=== PATIENT | female | born 1980 | race Caucasian/White ===

== ENCOUNTER 2016-10-20 15:38 | Emergency (ER) | payer SELFPAY ==
[2016-10-20 16:57] VITALS: BP 90/67
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
== END 2016-10-20 17:04 | disposition home or self-care (01) ==
LOC: UCCORT 15:38
DX: G89.29 Other chronic pain (principal); M54.9 Dorsalgia, unspecified; Z87.828 Personal history of other (healed) physical injury and trauma
CPT/HCPCS: 99212; G0463

== ENCOUNTER 2016-10-24 12:06 | Emergency (ER) | payer OTHER ==
[2016-10-24 14:22] VITALS: BP 113/78
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
[2016-10-24] MEDS ORDERED: HYDROcodone/ACETAMIN 5-325 MG* 1 TAB PO ONE (14:58)
== END 2016-10-24 15:17 | disposition home or self-care (01) ==
LOC: UCCORT 12:06
DX: S39.012S Strain of muscle, fascia and tendon of lower back, sequela (principal); X58.XXXS Exposure to other specified factors, sequela
CPT/HCPCS: 99212; G0463

== ENCOUNTER 2016-10-31 15:34 | Emergency (ER) | payer OTHER ==
[2016-10-31 16:02] VITALS: BP 109/70
--- NOTE | 2016-10-31 16:24 | UC ---
Back Pain HPI - HPI Summary HPI Summary: Presents for renewal of analgesics. Has a Worker's Comp back injury, with Dr. Palmer managing her care. She has had fluctuation in care due to insurance problems. Dr. Jacobsen is her neurosurgeon, and he proposes surgery for her for discectomy, but is requiring that she lose 30 pounds before he performs her surgery. Present pain control is oxycodone 10/[address] Rosario--due to restrictions in prescribing, plan was to use higher analgesic dose to stretch further. I spoke with Stephanie Jimenez, the [facility] caseworker, who is aware of this management plan. Angela is to start PT next week. Presently off work for the next month. Reviewed [employer]ACH[employer] - History of Current Complaint Chief Complaint: UCBackPain Stated Complaint: LOWER BACK PAIN Time Seen by Provider: 10/31/16 16:06 Hx Obtained From: Patient Hx Last Menstrual Period: 10/23/16 ?: No Onset/Duration: Sudden Onset, Lasting Weeks Timing: Constant Severity Initially: Moderate Severity Currently: Moderate Back Pain: Is Discrete @ - Allergies/Home Medications Allergies/Adverse Reactions: Allergies Allergy/AdvReac Type Severity Reaction Status Date / Time environmental Allergy Sneezing Uncoded 10/31/16 16:02 PMH/Surg Hx/FS Hx/Imm Hx Endocrine History Of: Denies: Diabetes Cardiovascular History Of: Denies: Cardiac Disorders Respiratory History Of: Reports: Asthma GI/ History Of: Reports: Ulcer, Kidney Stones - Surgical History Surgical History: Yes Surgery Procedure, Year, and Place: appy, cholecystectomy, tubal lig, lithotripsy, hip surgery in February 2014(right), - Family History Known Family History: Positive: None, Hypertension - Social History Occupation: Disabled - on [facility] disability x 1 more month Lives: With Family Alcohol Use: None Substance Use Type: Prescribed Smoking Status (MU): Never Smoked Tobacco - Immunization History Most Recent Influenza Vaccination: [id number] Most Recent Tetanus Shot: unknown Review of Systems Constitutional: Negative Skin: Negative Eyes: Negative ENT: Negative Respiratory: Negative Cardiovascular: Negative Gastrointestinal: Negative Genitourinary: Negative Motor: Decreased ROM Neurovascular: Negative Musculoskeletal: Negative Neurological: Negative Psychological: Negative All Other Systems Reviewed And Are Negative: Yes Physical Exam Triage Information Reviewed: Yes Appearance: Pain Distress - uncomfortable walking, overweight, wearing a back brace. Antalgic gait Vital Signs: Initial Vital Signs Temp 98.6 F 10/31/16 15:57 Pulse 73 10/31/16 15:57 Resp 18 10/31/16 15:57 BP 109/70 10/31/16 15:57 Pulse Ox 100 10/31/16 15:57 Eye Exam: Normal ENT: Positive: Normal ENT inspection Neck: Positive: Supple Respiratory: Positive: Lungs clear, Normal breath sounds Cardiovascular: Positive: RRR, No Murmur Musculoskeletal Exam: Other - wearing back brace. Can heel and toe walk. DTR's at knees are 2+ and symmetrica. Pain with SLR greater than 80 degrees, tight hamstrings. Psychological Exam: Other - looks mildly depressed. Skin Exam: Normal Back Pain Course/Dx - Course Course Of Treatment: maintain narcotic pain medications pending comp re- evaluation. - Differential Dx/Diagnosis Provider Diagnoses: lumbar disk disesase Discharge - Discharge Plan Condition: Stable Disposition: HOME Prescriptions: oxyCODONE/Acetamin 10/325(NF) [Percocet 10/325 (NF)] 1 tab PO Q4H #18 tab MDD 6 Referrals: JUAN CARLOS Garza [Primary Care Provider] -
== END 2016-10-31 16:55 | disposition home or self-care (01) ==
LOC: UCCORT 15:34
DX: M51.9 Unspecified thoracic, thoracolumbar and lumbosacral intervertebral disc disorder (principal); Z87.442 Personal history of urinary calculi
CPT/HCPCS: 99212; G0463

== ENCOUNTER 2017-04-03 16:11 | Emergency (ER) | payer SELFPAY ==
[2017-04-03 18:28] VITALS: BP 109/71
--- NOTE | 2017-04-03 18:39 | UC ---
Dental HPI - HPI Summary HPI Summary: 36 yo female with toothache x days draining pus tooth had prior root canal face feels swollen no f/c - History of Current Complaint Chief Complaint: UCDentalProblem Stated Complaint: TOOTH ACHE Time Seen by Provider: 04/03/17 18:31 Hx Obtained From: Patient Hx Last Menstrual Period: 03/31/17 Onset/Duration: Gradual Onset, Lasting Days Severity: Severe Pain Intensity: 8 Pain Scale Used: 0-10 Numeric Aggravating: Nothing Alleviating: Nothing Related History: Previous Dental Care on Same Tooth, Discharge, Swelling - Allergies/Home Medications Allergies/Adverse Reactions: Allergies Allergy/AdvReac Type Severity Reaction Status Date / Time environmental Allergy Sneezing Uncoded 04/03/17 18:21 Home Medications: Home Medications Acetaminophen TAB* [Tylenol TAB*] 500 mg PO Q4H PRN 04/03/17 [History Confirmed 04/03/17] Gabapentin CAP(*) [Neurontin 300 CAP(*)] 600 mg PO DAILY 04/03/17 [History Confirmed 04/03/17] Gabapentin CAP(*) [Neurontin 400 mg CAP(*)] 900 mg PO BID 04/03/17 [History Confirmed 04/03/17] Ibuprofen TAB* [Motrin TAB* 800 MG] 1,000 mg PO ONCE 04/03/17 [History Confirmed 04/03/17] PMH/Surg Hx/FS Hx/Imm Hx Previously Healthy: Yes - chronic back pain - Surgical History Surgical History: Yes Surgery Procedure, Year, and Place: appy, cholecystectomy, tubal lig, lithotripsy, hip surgery in February 2014(right), - Family History Known Family History: Positive: Hypertension - Social History Alcohol Use: None Substance Use Type: Prescribed Smoking Status (MU): Never Smoked Tobacco - Immunization History Most Recent Influenza Vaccination: [id number] Most Recent Tetanus Shot: unknown Review of Systems Constitutional: Negative Skin: Negative Eyes: Negative ENT: Dental Pain Respiratory: Negative Cardiovascular: Negative Gastrointestinal: Negative Genitourinary: Negative Motor: Negative Neurovascular: Negative Musculoskeletal: Negative Neurological: Negative Psychological: Negative All Other Systems Reviewed And Are Negative: Yes Physical Exam Triage Information Reviewed: Yes Appearance: Well-Appearing, No Pain Distress, Well-Nourished Vital Signs: Initial Vital Signs Temp 99.0 F 04/03/17 18:16 Pulse 83 04/03/17 18:16 Resp 16 06/22/17 18:16 BP 109/71 04/03/17 18:16 Pulse Ox 99 04/03/17 18:16 Vital Signs Reviewed: Yes Eye Exam: Normal Eyes: Positive: Conjunctiva Clear ENT: Positive: Hearing grossly normal. Negative: Nasal congestion, Nasal drainage, Trismus, Muffled/hoarse voice Dental: Positive: Other: - abysmal dentition Neck: Positive: Nontender, No Lymphadenopathy Respiratory: Positive: Lungs clear, Normal breath sounds, No respiratory distress, No accessory muscle use Cardiovascular: Positive: RRR, No Murmur. Negative: Tachycardia, Bradycardia Musculoskeletal: Positive: ROM Intact, No Edema Neurological: Positive: Alert Psychological Exam: Normal Skin Exam: Normal Dental Complaint Course/Dx - Differential Dx/Diagnosis Provider Diagnoses: acute dentalgia. ?abscess Discharge - Discharge Plan Condition: Stable Disposition: HOME Prescriptions: HYDROcodone/ACETAMIN 5-325 MG* [[place] 5-325 TAB*] 1 tab PO Q4H PRN #12 tab MDD 5 PRN Reason: Pain - Severe Penicillin VK TAB 500 MG(NF) [Penicillin VK 500 mg Tab(NF)] 500 mg PO QID #28 tab Patient Education Materials: Toothache (ED) Referrals: JUAN CARLOS Garza [Primary Care Provider] - Additional Instructions: continue motrin to ER for worsening symptoms see your dentist first available appt Images Dental: 1 - tender tooth/capped/no obvious abscess noted, many missing teeth
[2017-04-03] MEDS ORDERED: Penicillin VK TAB* 250 MG PO ONE (18:41)
== END 2017-04-03 18:50 | disposition home or self-care (01) ==
LOC: UCCORT 16:11
DX: K08.89 Other specified disorders of teeth and supporting structures (principal); G89.29 Other chronic pain; M54.9 Dorsalgia, unspecified; Z90.49 Acquired absence of other specified parts of digestive tract
CPT/HCPCS: 99212; A9270-GY; G0463

== ENCOUNTER 2018-03-25 20:57 | Emergency (ER) | payer SELFPAY ==
[2018-03-25 21:34] VITALS: BP 112/71
--- NOTE | 2018-03-25 22:10 | UC ---
General HPI - HPI Summary HPI Summary: 37 yo female c/o worsening chronic low back pain. Hs disc injury in December 2015 at work, with pain radiating LLE> RLE. Plans to have surgery (Dr. Marroquin, Neurosurgeon), date TBD. Ms. Briones is waiting for a follow up appt, thinks it will be within the next few days. No b/b issues. She is concerned b/c she is scheduled to return to work, but needs a work note. Nature of pain (location, dysesthesia) similar, but reports that lately more intense. - History of Current Complaint Chief Complaint: UCLowerExtremity Stated Complaint: LEFT LEG PAIN - W/C Time Seen by Provider: 03/25/18 21:29 Hx Obtained From: Patient Hx Last Menstrual Period: 02/25/18 Pain Intensity: 8 - Allergy/Home Medications Allergies/Adverse Reactions: Allergies Allergy/AdvReac Type Severity Reaction Status Date / Time environmental Allergy Sneezing Uncoded 04/03/17 18:21 Home Medications: Home Medications Oxycodone IR 10 MG(NF) 10 mg PO TID 03/25/18 [History Confirmed 03/25/18] Pantoprazole Sodium 20 mg PO DAILY 03/25/18 [History Confirmed 03/25/18] Pregabalin CAP(*) [Lyrica CAP(*)] 75 mg PO TID 03/25/18 [History Confirmed 03/25] PMH/Surg Hx/FS Hx/Imm Hx Previously Healthy: No - see hpi - Surgical History Surgical History: Yes Surgery Procedure, Year, and Place: appy, cholecystectomy, tubal lig, lithotripsy, hip surgery in February 2014(right), - Family History Known Family History: Positive: None, Hypertension - Social History Alcohol Use: None Substance Use Type: None Smoking Status (MU): Never Smoked Tobacco - Immunization History Most Recent Influenza Vaccination: [id number] Most Recent Tetanus Shot: unknown Review of Systems Constitutional: Negative Skin: Negative Eyes: Negative ENT: Negative Respiratory: Negative Cardiovascular: Negative Gastrointestinal: Negative Genitourinary: Negative Motor: Other - see hpi Neurovascular: Other - see hpi Musculoskeletal: Other: - see hpi Neurological: Other - see hpi Psychological: Negative Is Patient Immunocompromised?: No All Other Systems Reviewed And Are Negative: Yes Physical Exam Triage Information Reviewed: Yes Appearance: Well-Nourished - sitting up in chair, able to stand up and ambulate slowly. Vital Signs: Initial Vital Signs Temp 99.2 F 03/25/18 21:20 Pulse 96 03/25/18 21:20 Resp 17 03/25/18 21:20 BP 112/71 03/25/18 21:20 Pulse Ox 98 03/25/18 21:20 Vital Signs Reviewed: Yes Eye Exam: Normal - grossly normal ENT Exam: Normal - grossly normal Neck exam: Normal - no problems reported Respiratory Exam: Normal Respiratory: Positive: Chest non-tender, Lungs clear, Normal breath sounds, No respiratory distress, No accessory muscle use Cardiovascular Exam: Normal Cardiovascular: Positive: RRR, No Murmur, Pulses Normal, Brisk Capillary Refill Abdominal Exam: Normal Abdomen Description: Positive: Nontender Musculoskeletal Exam: Other - Tender mid-low back, + spasm. Point bony tenderness not appreciated. Tenderness subj radiates down both buttock ( sciatic region). Distal (foot / toes) sens LT present, subj dysesthetic L toes > R toes. DP /PT palbable bilat. CR <2 sec bilat feet. Neurological Exam: Other - see above Psychological Exam: Normal - conversing easily and appropriately Skin Exam: Normal - no visible or reported rash Course/Dx - Course Course Of Treatment: Ms. Briones reports that she plans to f/u pcp, and NS. Awaiting appts. As such, work note written for 2 weeks, with the understanding that she will need to see her pcp and / or NS prior to then. She thinks in the next few days. Questions as posed answered to the best of my ability. - Differential Dx - Multi-Symptom Provider Diagnoses: Acute exacerbation chronic back pain Discharge - Sign-Out/Discharge Documenting (check all that apply): Discharge/Admit/Transfer - Discharge Plan Condition: Stable Disposition: HOME Patient Education Materials: Lumbar Radiculopathy (ED), Chronic Back Pain (ED) Forms: *Work Release Referrals: Nisreen Martinez PA [Primary Care Provider] - Additional Instructions: Please follow up with your Neurosurgeon as planned. Seek medical attention for worse or new problems. Movement / excercise per discretion of your neurosurgeon. Follow up with your primary care physician, per routine. - Billing Disposition and Condition Condition: STABLE Disposition: Home
== END 2018-03-25 22:03 | disposition home or self-care (01) ==
LOC: UCCORT 20:57
DX: M54.5 Low back pain (principal); G89.29 Other chronic pain; M79.605 Pain in left leg; M79.604 Pain in right leg; Z91.09 Other allergy status, other than to drugs and biological substances
CPT/HCPCS: 99212; G0463

== ENCOUNTER 2018-12-17 12:18 | Emergency (ER) | payer SELFPAY ==
[2018-12-17 13:45] VITALS: BP 115/70
--- NOTE | 2018-12-17 14:02 | UC ---
Dizzy HPI HPI Summary: 38 yo female with left hemicranial OSBORNE and dizziness x 4 weeks seen at ER 2 weeks ago told her potassum level was low since then she had fallen a few times due to dizziness SOB x 2 days Feels near syncopal at time told by family members that she is pale hx anemia hx migraines some flashes left eye has vomited rarely during the past month - History Of Current Complaint Chief Complaint: UCDizziness Stated Complaint: HEADACHE,LEFT EAR PAIN Time Seen by Provider: 12/17/18 13:26 Hx Obtained From: Patient Hx Last Menstrual Period: 11/30/18 Onset/Duration: Gradual Onset Timing: Constant Severity Initially: Severe Severity Currently: Severe Pain Intensity: 8 Pain Scale Used: 0-10 Numeric Character: Lightheaded, Weak, Dizzy Aggravating Factor(s): Headache, Position Change Alleviating Factor(s): Lying Down Associated Signs And Symptoms: Positive: Nausea, Vomiting - rarely, SOB - x 2 days, Unsteady Gait, Visual Changes, Decreased Oral Intake. Negative: Diaphoresis, Tinnitus, Chest Pain, Palpitations, Change In Medication, Change In Diet, OTC Medications - Allergies/Home Medications Allergies/Adverse Reactions: Allergies Allergy/AdvReac Type Severity Reaction Status Date / Time environmental Allergy Sneezing Uncoded 12/17/18 13:46 PMH/Surg Hx/FS Hx/Imm Hx Previously Healthy: Yes GI/ History: Ulcer, Kidney Stones Neurological History: Migraine - Surgical History Surgical History: Yes Surgery Procedure, Year, and Place: appy, cholecystectomy, tubal lig, lithotripsy, hip surgery in February 2014 (right), - Family History Known Family History: Positive: Hypertension - Social History Alcohol Use: None Substance Use Type: None Smoking Status (MU): Never Smoked Tobacco - Immunization History Most Recent Influenza Vaccination: [id number] Most Recent Tetanus Shot: unknown Review of Systems All Other Systems Reviewed And Are Negative: Yes Constitutional: Positive: Fatigue Skin: Positive: Negative Eyes: Positive: Other - left eye flashes ENT: Negative: Epistaxis, Dental Pain, Sore Throat, Ear Ache, Nasal Discharge, Sinus Congestion, Sinus Pain/Tenderness Respiratory: Positive: Shortness Of Breath Cardiovascular: Positive: Negative Gastrointestinal: Positive: Vomiting - rare, Nausea Neurovascular: Positive: Negative Musculoskeletal: Positive: Negative Neurological: Positive: Headache, Weakness Psychological: Positive: Negative Physical Exam Triage Information Reviewed: Yes Appearance: Other: - PALE Vital Signs: Initial Vital Signs Temp 98 F 12/17/18 13:22 Pulse 93 12/17/18 13:22 Resp 22 12/17/18 13:22 BP 115/70 12/17/18 13:22 Pulse Ox 100 12/17/18 13:22 Vital Signs Reviewed: Yes Eyes: Positive: Conjunctiva Clear, Other: - EOMI/PERRL ENT: Positive: Hearing grossly normal, TMs normal. Negative: Nasal congestion, Nasal drainage, Tonsillar swelling, Tonsillar exudate, Muffled voice, Hoarse voice Neck: Positive: Supple, Nontender, No Lymphadenopathy Respiratory: Positive: Lungs clear, Normal breath sounds, No respiratory distress, No accessory muscle use Cardiovascular: Positive: RRR, No Murmur Abdomen Description: Positive: Nontender, No Organomegaly Neurological: Positive: Alert Psychological Exam: Normal Skin Exam: Other - pallor Diagnostics - EKG Cardiac Rate: NL Cardiac Rhythm: Sinus: Normal Ectopy: None ST Segment: Normal Dizzy Course/Dx - Course Course Of Treatment: D/W Dr. Garvey. To [facility] via POV (her mother is driving) - Differential Dx/Diagnosis Provider Diagnosis: Headache, Dizziness, Pallor, Dyspnea Discharge - Sign-Out/Discharge Documenting (check all that apply): Patient Departure All imaging exams completed and their final reports reviewed: No Studies - Discharge Plan Condition: Stable Disposition: TRANS HIGHER LVL OF CARE FAC Referrals: No Primary Care Phys,NOPCP [Primary Care Provider] - Additional Instructions: please go directly to the [facility] for evaluation of your symptoms they are expecting you - Billing Disposition and Condition Condition: STABLE Disposition: Trans Higher Lvl of Care Fac
== END 2018-12-17 14:03 | disposition short-term general hospital (02) ==
LOC: UCCORT 12:18
DX: R51 Headache (principal); R42 Dizziness and giddiness; R23.1 Pallor; R06.00 Dyspnea, unspecified; R06.02 Shortness of breath; H92.02 Otalgia, left ear; H53.149 Visual discomfort, unspecified; H57.89 Other specified disorders of eye and adnexa; Z91.09 Other allergy status, other than to drugs and biological substances
CPT/HCPCS: 93005; 99212; G0463

== ENCOUNTER 2018-12-24 09:08 | Emergency (ER) | payer SELFPAY ==
[2018-12-24 09:44] VITALS: BP 109/66
--- NOTE | 2018-12-24 10:03 | UC ---
Skin Complaint HPI - HPI Summary HPI Summary: 38 yo female with chronic hx acne presents with painful/swollen and red ear lobe states that last PM it drained a lot of pus now with sore on tip of nose that she attributes to an acne face agent - History of Current Complaint Chief Complaint: UCEar Time Seen by Provider: 12/24/18 09:51 Stated Complaint: SKIN CONCERN - RIGHT EAR Hx Obtained From: Patient Hx Last Menstrual Period: 11/29/18 Onset/Duration: Gradual Onset, Lasting Days Timing: Constant Onset Severity: Mild Current Severity: Moderate Pain Intensity: 8 Pain Scale Used: 0-10 Numeric Location: Ear (Right) Character: Pruritus, Pain, Redness, Raised, Painful Aggravating Factor(s): Touch Alleviating Factor(s): Nothing Associated Signs & Symptoms: Positive: Negative, Drainage, Tenderness - Allergy/Home Medications Allergies/Adverse Reactions: Allergies Allergy/AdvReac Type Severity Reaction Status Date / Time environmental Allergy Sneezing Uncoded 12/24/18 09:39 Home Medications: Home Medications Bupropion XL* [Wellbutrin XL *] 300 mg PO DAILY 12/24/18 [History Confirmed ] Meclizine TAB* [Antivert 12.5 TAB*] 25 mg PO TID 12/24/18 [History Confirmed ] Potassium 10 mg PO DAILY 12/24/18 [History Confirmed 12/24/18] PMH/Surg Hx/FS Hx/Imm Hx Previously Healthy: Yes - herniated discs - Surgical History Surgical History: Yes Surgery Procedure, Year, and Place: appy, cholecystectomy, tubal lig, lithotripsy, hip surgery in February 2014 (right), - Family History Known Family History: Positive: Hypertension - Social History Alcohol Use: Occasionally Substance Use Type: None Smoking Status (MU): Never Smoked Tobacco - Immunization History Most Recent Influenza Vaccination: [id number] Most Recent Tetanus Shot: unknown Review of Systems All Other Systems Reviewed And Are Negative: Yes Constitutional: Positive: Negative Skin: Positive: Rash Eyes: Positive: Negative ENT: Positive: Negative Respiratory: Positive: Negative Cardiovascular: Positive: Negative Gastrointestinal: Positive: Negative Genitourinary: Positive: Negative Motor: Positive: Negative Neurovascular: Positive: Negative Musculoskeletal: Positive: Arthralgia - back Neurological: Positive: Negative Psychological: Positive: Negative Physical Exam Triage Information Reviewed: Yes Appearance: Well-Appearing, No Pain Distress, Well-Nourished Vital Signs: Initial Vital Signs Temp 98.1 F 12/24/18 09:38 Pulse 107 12/24/18 09:38 Resp 16 12/24/18 09:38 BP 109/66 12/24/18 09:38 Pulse Ox 100 12/24/18 09:38 Vital Signs Reviewed: Yes Eyes: Positive: Conjunctiva Clear ENT: Positive: Normal ENT inspection. Negative: Nasal congestion, Nasal drainage, Trismus, Muffled voice, Hoarse voice Dental Exam: Normal Neck exam: Normal Neck: Positive: Supple, Nontender, No Lymphadenopathy Respiratory: Positive: Lungs clear, Normal breath sounds, No respiratory distress, No accessory muscle use Cardiovascular: Positive: RRR, No Murmur Musculoskeletal: Positive: ROM Intact, No Edema Neurological: Positive: Alert Psychological Exam: Normal Skin Exam: Other - papules on face, impetigenous lesion tip of nose, right ear lobe swollen and red, seal site of drainage, not flutuant Course/Dx - Diagnoses Provider Diagnosis: Cellulitis of right earlobe, Impetigo, unspecified Discharge - Sign-Out/Discharge Documenting (check all that apply): Patient Departure All imaging exams completed and their final reports reviewed: No Studies - Discharge Plan Condition: Stable Disposition: HOME Prescriptions: DOXYcycline CAP(*) [DOXYcycline 100MG CAP(*)] 100 mg PO BID #20 cap Ibuprofen TAB* [Motrin TAB*] 600 mg PO Q6H PRN #40 tab PRN Reason: Pain Mupirocin 2% OINT* [Bactroban 2 % Oint*] 1 applic TOPICAL TID #1 tube Patient Education Materials: Cellulitis (ED) Referrals: No Primary Care Phys,NOPCP [Primary Care Provider] - Additional Instructions: recheck in 48 hours if not improved recheck sooner if symptoms worsen warm soapy compresses to right ear 4x day don't squeeze if you note more pus return - Billing Disposition and Condition Condition: STABLE Disposition: Home
== END 2018-12-24 10:18 | disposition home or self-care (01) ==
LOC: UCCORT 09:08
DX: H60.11 Cellulitis of right external ear (principal); L01.00 Impetigo, unspecified; L70.8 Other acne; M54.9 Dorsalgia, unspecified; R23.8 Other skin changes; R21 Rash and other nonspecific skin eruption; Z91.09 Other allergy status, other than to drugs and biological substances
CPT/HCPCS: 87070; 87205; 99212; G0463

== ENCOUNTER 2019-02-12 20:41 | Emergency (ER) | payer SELFPAY ==
--- OUTSIDE RECORDS SUMMARY | 2019-02-12 20:52 | XMS REPORT | Continuity of Care Document ---
:1980 External Reference #:[id number] Author Name Rhoda Us PNP-BC, CLAY HOISTER, Ibclc Address [address] [place] [address] Care Team Providers Name Role Phone Rhoda Us, JIM, ERNESTINE, Ibne Care Team Information Legal Administrator Unavailable Rhoda Us PNP-BC, ERNESTINE, Ibclc Primary Care Physician Unavailable Payers Date Identification Numbers Payment Provider Subscriber Policy Number: [id number] [employer] Angela Fostervenice PayID: [id number] [address] [place] [address] Onset: 2016 Group Number: WCB # Guarantee Insurance Angela Briones [id number] Company PayID: [id number] [address] [place] [address] Advance Directives Description No Information Available Problems Active Problems Provider Date Polysubstance abuse Nisreen Martinez RPAC Onset: 09/26/2018 Alcohol abuse Nisreen Martinez RPAC Onset: 09/26/2018 Borderline personality disorder Nisreen Martinez RPAC Onset: 11/05/2018 Dysthymia Nisreen Martinez RPAC Onset: 03/31/2018 Panic disorder without agoraphobia Nisreen Martinez RPAC Onset: 03/31/2018 Kidney stone Catalino Mccormack MD Onset: 03/26/2016 Note: L lithotripsy Gastroesophageal reflux disease Catalino Mccormack MD Onset: 03/26/2016 Note: esophageal dilation 10/2017 Migraine Catalino Mccormack MD Onset: 03/26/2016 Degenerative joint disease involving Nisreen Martinez [facility] WITH [facility] Onset: 2016 multiple joints Note: lumbar, S-I joints, hips Degeneration of lumbar intervertebral disc Nisreen Martinez [facility] WITH [facility] Onset: 03/2017 Note: (B) nerve impingement CT 12/2016 Environmental allergy Nisreen Martinez [facility] WITH [facility] Onset: 06/19/2017 Note: hx of allergy immunoproprophylaxis, since childhd Constipation Nisreen Martinez [facility] WITH [facility] Onset: 11/10/2017 Malaise and fatigue Nisreen Martinez [facility] WITH [facility] Onset: 03/31/2018 Varicose veins of lower extremity Nisreen Martinez [facility] WITH [facility] Onset: 03/31/2018 Note: left Resolved Problems Bite of nonvenomous arthropod Nisreen Martinez [facility] WITH [facility] Onset: 03/31/2018 Resolved: 05/03/2018 Family History Date Family Member(s) Observation Comments Mother Asthma Mother Gastritis Mother Stroke Mother Diabetes Mother Heart Disease Mother Gastroesophageal Reflux Disease (GERD) Mother Hernia Hiatal Children 3 Asthma & allergies First Daughter Asthma Second Daughter Asthma First Brother Asthma First Brother Gastroesophageal Reflux Disease (GERD) Second Brother Gastroesophageal Reflux Disease (GERD) Onset: (age 70 Paternal Grandfather Colon Cancer Years) Social History Type Date Description Comments Sex Unknown Lives With Children Home Environment Lives With Kids x3 Diet Patient follows no dietary restrictions 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 Work Status Currently Working Tobacco Use Start: Unknown Never Smoked Cigarettes ETOH Use Currently consumes alcohol socially Tobacco Use Start: Unknown Patient denies history of smoking Recreational Drug Use Current Drug User polysubstance abuse Smoking Status Reviewed: 01/25/19 Patient denies history of smoking Allergies, Adverse Reactions, Alerts Description No Known Drug Allergies Medications Active Medications SIG Qnty Indications Ordering Date Provider Gabapentin 1 by mouth two 60caps G89.4 Rhoda Us, 01/25/2019 300mg times a day PNP-BC, CLAY HOISTER, Capsules Ibclc Tramadol HCL 1 tab by mouth q6 60tabs G89.4 Rhoda Us, 01/25/2019 50mg hours as needed PNP-BC, CLAY HOISTER, Tablets reference #: Ibclc [id number] Duloxetine HCL 1 by mouth every 60caps F34.1 Rhoda Us, 01/25/2019 30mg day for 1 week PNP-BC, CLAY HOISTER, Caps DR Rose then 2 once a Ibclc day. Polyethylene Glycol mix 1 tablespoon 1054units Rhoda Us, 11/11/2018 3350 with large glass BABS-BC, CLAY HOISTER, 3350NF Powder of water and Ibclc drink every day Thiamine HCL 1 by mouth every 90tabs Rhoda Us, 09/17/2018 100mg day PNP-MARCEL, CLAY HOISTER, Tablets Ibclc Multivitamin Adult 1 by mouth every 90tabs Shelton Bullard, 09/17/2018 day M.D. Tablets Pantoprazole Sodium take 1 tablet by 30tabs R13.10 Rhoda Us, 2016 mouth every day BABS-MARCEL CLAY HOISTER, 20mg Tablets DR Rome Tumelidia prn Unknown 500mg Chewtabs History Medications Dok Take 1 Capsule By 60caps Leon Maynard, 11/11/2018 - 100mg Capsules Mouth And Can 01/25/2019 Take Twice Daily as Needed Mupirocin Calcium Thin layer to 1units Shelton Bullard, 11/06/2018 - Oin face wounds tid M.D. 11/06/2018 Mupirocin apply a thin 22gm Shelton Bullard, 11/06/2018 - 2% Ointment layer to face M.D. 01/25/2019 wounds 3 times a day until healed Bactroban Thin layer to 15gm Shelton Bullard, 11/05/2018 - 2% Cream face wounds tid M.D. 11/06/2018 Duloxetine HCL 1 by mouth every 30caps F34.1 Shelton Bullard, 11/05/2018 - 60mg day M.D. 01/25/[address] Rose Potassium Chloride Take 1 Tablet By 30tabs Shelton Bullard, 10/16/2018 - Jessie ER Mouth Every Day M.D. 01/25/2019 10Meq Tablets ER Pramipexole Take 1 To 2 60tabs Shelton Bullard, 10/16/2018 - Dihydrochloride Tablets By Mouth M.D. 01/25/2019 0.25mg AT Bedtime Tablets Lyrica 1 cap by mouth 20caps Shelton Bullard, 09/29/2018 - 25mg Capsules twice a day, M.D. 11/05/2018 taper as directed Doxepin HCL Take 1 Capsule By 60caps F41.9 BullardIshan lakhanishan, 09/29/2018 - 10mg Mouth Twice Daily M.D. 01/25/2019 Capsules as Needed For Anxiety Bupropion HCL ER (XL) 1 by mouth every 30tabs F34.1 Shelton Bullard, 2017 - day M.D. 01/25/2019 300mg Tablets ER 24HR Mirapex 1-2 tabs by mouth 60tabs Shelton Bullard, 09/21/2018 - 0.25mg Tablets at bedtime M.D. 10/16/2018 Klor-Con M10 1 by mouth every 30tabs Shelton Bullard, 09/17/2018 - 10Meq day M.D. 10/16/2018 Tablets ER Oxycodone HCL 1 tablet by mouth Aaron Mckeon MD 08/31/2018 - 10mg every 4 hrs ::: 09/28/2018 Lyrica one cap by mouth Aaron Mckeon MD 08/31/2018 - 50mg Capsules three times a day 09/28/2018 Bupropion HCL ER (SR) 1 By Mouth Every 30tabs F34.1 Shelton Bullard, 2017 - Am M.D. 09/21/2018 150mg Tablets ER 12HR Vitamin B12 1 cc im every Shelton Bullard, 03/31/2018 - Suspension month M.D. 05/01/2018 Hydrocortisone thin layer to 28gm W57.xx Shelton Bullard, 03/31/2018 - 1% Cream face wound three xA M.D. 11/05/2018 times a day Duloxetine HCL 1 By Mouth Every 30caps F34.1 Shelton Bullard, 03/31/2018 - 30mg Day M.D. 11/05/[address] Rose Dulcolax 4 Tablets Taken A 4tabs Leon Maynard, 03/23/2018 - 5mg Tablets DR 8PM The Day 03/31/2018 Before The Procedure Dulcolax 4 tablets taken a 4tabs K92.2 Leon Maynard, 10/21/2017 - 5mg Tablets DR 8pm the day 11/10/2017 before the procedure Citroma drink 1 bottle at 296ml K92.2 Leon Maynard, 10/21/2017 - 1.745GM/30ML 12pm (noon)the 11/10/2017 Solution day before the procedure Golytely drink half the 4000ml K92.2 Leon Maynard, 10/21/2017 - 236gm Solution evening before 11/10/2017 Rec and half the morning of the procedure (1 cup every 10') Colace 1 by mouth daily 60caps K59.09 Leon Maynard, 10/21/2017 - 100mg Capsules and can take 01/25/2019 twice a day as needed Lactulose 15 milliliters by 900ml K59Leon Partida, 10/21/2017 - 20GM/30ML mouth twice a day 09/29/2018 Solution as needed Topiramate 1 po bid [facility] 07/20/2017 - [facility] 03/31/2018 Tablets Gabapentin per [facility] and 60tabs [facility] 07/20/2017 - 600mg [facility] 07/28/2017 Tablets Baclofen 1 tab by mouth [facility] 06/25/2017 - 10mg Tablets three times a day [facility] 03/31/2018 spasm Vitamin D 1 tab by mouth 90tabs Shelton Bullard, 06/24/2017 - 2000Unit every day M.D. 03/31/2018 Tablets TENS Unit uses tid Shelton Bullard, 06/19/2017 - M.D. 03/31/2018 Miralax 1 tablespoon with 1020units K59.09 Leon Maynard, 06/10/2017 - 3350NF Powder large glass of 11/05/2018 water every day Cyclobenzaprine HCL 1 by mouth three SpencerGary 04/12/2017 - times daily M.D. Unknown 10mg Tablets Pantoprazole Sodium 1 By Mouth Every 30tabs R10.13 Leon Maynard, 2015 - Day MD Rao 40mg Tablets DR Bedoya 1 by mouth every 60caps K59.09 Leon Maynard, 09/19/2016 - 50mg Capsules day MD Rao T.E.D. Anti-Embolism wear , bilateral 2Pairs 454.8 Ramon Reece MD 2012 - Stockings Thigh High [facility]18[facility]2017 [facility] Anti-Embolism right and left OnePair 454.8 Ramon Reece MD 2011 - Stockings Thigh High 06/23/2013 Medium/Regular 30-40MMHG Misc Melatonin 1 by mouth every Unknown - 5mg Capsules at bedtime as 11/05/2018 needed Lyrica 1 cap po tid Aaron Mckeon MD - 75mg Capsules 09/18/2018 Trazodone HCL take one tablets Gary Palmer - 100mg by mouth every M.D. 03/31/2018 Tablets night Gabapentin 1 by mouth bid [place] - 300mg along with the Orthopedic Unknown Capsules 600mg dose Special[facility] Gabapentin 1 by mouth three [place] - 600mg times a day Orthopedic Unknown Tablets Specialists Tums chew and swallow Unknown - 500mg Chewtabs 1 tablet by mouth 06/19/2017 3 times per day prn Acid Hand Marker 2 twice a day Unknown - 150mg 06/19/2017 Tablets Ventolin HFA 1-2 puffs every Unknown - 4-6 hours as 06/19/2017 108(90Base) mcg/Act needed Aerosol Oxycodone HCL 1-2 every 4-6 Unknown - 5mg hour as needed 06/18/2017 Tablets pain tid Trazodone HCL 1 by mouth at Unknown - 100mg bedtime 06/19/2017 Tablets Limbrel 1 by mouth twice Unknown - 500mg Capsules a day Unknown Vitamin D 1 po qd Unknown - Capsules Unknown Ibuprofen Unknown - 800mg Tablets Unknown Tizanidine HCL Unknown - 4mg Unknown Capsules Vitamin D High Unknown - Potency 06/23/2013 1000Unit Capsules Tramadol HCL 1 po tid 20tabs Unknown - 50mg Unknown Tablets Vicodin 1-2 po hs 40tabs Unknown - 5-500mg Tablets Unknown Cyclobenzaprine HCL 1 po tid Unknown - 5mg 06/23/2013 Tablets Medications Administered in Office Medication SIG Qnty Indications Ordering Provider Date Injection [facility]ac [facility] Tromethamine 30 MG/mL (Toradol) Injection Immunizations Description No Information Available Vital Signs Date Vital Result Comment 01/25/2019 4:00pm BP Systolic 100 mmHg BP Diastolic 60 mmHg Body Temperature 96.9 F Heart Rate 79 /min Respiratory Rate 18 /min Height 63 inches 5'3" Weight 160.00 lb BMI (Body Mass Index) 28.3 kg/m2 BSA (Body Surface Area) 1.76 m2 [place] body weight in kilograms 52 kg O2 % BldC Oximetry 98 % 11/05/2018 1:48pm BP Systolic Sitting Right Arm 110 mmHg BP Diastolic Sitting Right Arm 80 mmHg Body Temperature 98.3 F Heart Rate 86 /min reg Respiratory Rate 18 /min Height 63 inches 5'3" Weight 150.00 lb BMI (Body Mass Index) 26.6 kg/m2 BSA (Body Surface Area) 1.71 m2 [place] body weight in kilograms 52 kg O2 % BldC Oximetry 98 % ra 09/29/2018 1:03pm BP Systolic Sitting Right Arm 120 mmHg BP Diastolic Sitting Right Arm 74 mmHg Body Temperature 99.0 F Heart Rate 95 /min reg Respiratory Rate 30 /min Height 63 inches 5'3" Weight 155.00 lb BMI (Body Mass Index) 27.5 kg/m2 BSA (Body Surface Area) 1.74 m2 [place] body weight in kilograms 52 kg O2 % BldC Oximetry 98 % ra 05/01/2018 1:03pm BP Systolic 116 mmHg BP Diastolic 71 mmHg Body Temperature 98.6 F Heart Rate 86 /min Respiratory Rate 18 /min Height 63 inches 5'3" Weight 150.00 lb BMI (Body Mass Index) 26.6 kg/m2 BSA (Body Surface Area) 1.71 m2 [place] body weight in kilograms 52 kg O2 % BldC Oximetry 97 % 03/31/2018 11:18am BP Systolic Sitting Left Arm 110 mmHg BP Diastolic Sitting Left Arm 68 mmHg Body Temperature 98.4 F Heart Rate 82 /min Respiratory Rate 16 /min Height 63 inches 5'3" Weight 154.00 lb BMI (Body Mass Index) 27.3 kg/m2 BSA (Body Surface Area) 1.73 m2 [place] body weight in kilograms 52 kg O2 % BldC Oximetry 97 % Ra 11/11/2017 4:03pm BP Systolic Sitting Left Arm 124 mmHg BP Diastolic Sitting Left Arm 80 mmHg Heart Rate 76 /min Respiratory Rate 16 /min Height 63 inches 5'3" Weight 156.00 lb BMI (Body Mass Index) 27.6 kg/m2 BSA (Body Surface Area) 1.74 m2 [place] body weight in kilograms 52 kg 10/21/2017 1:27pm BP Systolic Sitting Left Arm 118 mmHg BP Diastolic Sitting Left Arm 76 mmHg Heart Rate 73 /min Respiratory Rate 16 /min Height 63 inches 5'3" Weight 153.00 lb BMI (Body Mass Index) 27.1 kg/m2 BSA (Body Surface Area) 1.73 m2 [place] body weight in kilograms 52 kg 10/16/2017 2:35pm BP Systolic Sitting Left Arm 122 mmHg BP Diastolic Sitting Left Arm 70 mmHg Heart Rate 67 /min Respiratory Rate 16 /min Height 63 inches 5'3" Weight 156.00 lb BMI (Body Mass Index) 27.6 kg/m2 BSA (Body Surface Area) 1.74 m2 [place] body weight in kilograms 52 kg 07/28/2017 1:12pm BP Systolic Sitting Left Arm 104 mmHg BP Diastolic Sitting Left Arm 72 mmHg Heart Rate 70 /min Respiratory Rate 18 /min Height 63 inches 5'3" Weight 158.00 lb BMI (Body Mass Index) 28.0 kg/m2 BSA (Body Surface Area) 1.75 m2 [place] body weight in kilograms 52 kg O2 % BldC Oximetry 98 % 06/19/2017 10:53am BP Systolic Sitting Left Arm 108 mmHg BP Diastolic Sitting Left Arm 72 mmHg Heart Rate 84 /min Respiratory Rate 18 /min Height 63 inches 5'3" Weight 160.00 lb BMI (Body Mass Index) 28.3 kg/m2 BSA (Body Surface Area) 1.76 m2 [place] body weight in kilograms 52 kg O2 % BldC Oximetry 98 % 06/10/2017 11:36am BP Systolic Sitting Left Arm 110 mmHg BP Diastolic Sitting Left Arm 76 mmHg Heart Rate 72 /min Respiratory Rate 16 /min Height 64.75 inches 5'4.75" Weight 164.00 lb BMI (Body Mass Index) 27.5 kg/m2 BSA (Body Surface Area) 1.81 m2 [place] body weight in kilograms 56 kg 09/19/2016 9:29am BP Systolic Sitting Left Arm 104 mmHg BP Diastolic Sitting Left Arm 76 mmHg Heart Rate 78 /min Respiratory Rate 16 /min Height 64.75 inches 5'4.75" Weight 178.00 lb BMI (Body Mass Index) 29.8 kg/m2 BSA (Body Surface Area) 1.88 m2 09/13/2013 1:14pm BP Systolic Sitting Left Arm 111 mmHg BP Diastolic Sitting Left Arm 71 mmHg Heart Rate 83 /min Height 64.75 inches 5'4.75" Weight 171.00 lb BMI (Body Mass Index) 28.7 kg/m2 BSA (Body Surface Area) 1.85 m2 06/23/2013 10:15am BP Systolic Sitting Left Arm 104 mmHg BP Diastolic Sitting Left Arm 68 mmHg Height 64.75 inches 5'4.75" Weight 175.00 lb BMI (Body Mass Index) 29.3 kg/m2 BSA (Body Surface Area) 1.86 m2 11/25/2011 1:33pm BP Systolic Sitting Right Arm 91 mmHg BP Diastolic Sitting Right Arm 52 mmHg Heart Rate 78 /min Respiratory Rate 16 /min Height 63 inches 5'3" Weight 170.00 lb BMI (Body Mass Index) 30.1 kg/m2 Results Test Date Facility Test Result H/L Range Note Laboratory test finding 11/15/2018 [facility] Lipase 73 U/L N 56-289 1 [address] [place] [address] [phone] HCG,Serum (Qualitative) NEGATIVE (Negative) 2 CBC W/Automated Diff 11/15/2018 [facility] White Blood 6.7 K/uL N 3.1-10.[address] [place] [address] [phone] Red Blood Count 4.53 M/uL N 3.90-5.40 Hemoglobin 13.0 gm/dL N 11.6-15.8 Hematocrit 38.8 % N 36.0-46.1 Mean Cell Volume 85.7 fl N 80.9-99.0 Mean Corpuscular HGB 28.7 pg N 25.9-32.7 Mean Corpuscular HGB Conc 33.5 g/dL N 30.8-34.3 Platelet Count 286 K/uL N 155-360 Red Cell Distri Width SD 42.8 fl N 36-47 Red Cell Distri Width %CV 14.1 % N 11.7-14.4 Mean Platelet Volume 11.1 fL N 8.9-12.4 Neut% 61.9 % N 40.4-72.8 Lymph % 26.3 % N 20.0-42.0 Stephens % 8.9 % N 4.3-13.2 Eo% 2.6 % N 0.0-6.6 Bas% 0.3 % N 0.0-1.1 Neut# 4.13 K/uL N 1.8-7.0 Lymph # 1.75 K/uL N 1.0-4.0 Stephens # 0.59 K/uL N 0.3-0.9 Eos # 0.17 K/uL N 0.0-0.5 Baso # 0.02 K/uL N 0.0-0.1 Comprehensive Metabolic 11/15/2018 [facility] Glucose 94 mg/dL N 74-106 Panel [address] [place] [address] [phone] BUN 8 mg/dL N 7-18 Creatinine 0.7 mg/dL 0.6-1.3 Glom Filtration Rate, Estimate >60 mL/min >60 If >60 mL/min >60 3 BUN/Creat 11.4 ratio Sodium 139 mmol/L N 136-145 Potassium 3.1 mmol/L Low 3.5-5.1 Chloride 102 mmol/L N 98-107 Carbon Dioxide 30 mmol/L N 21-32 Anion Gap 7 mEq/L Low 8-16 Calcium 9.8 mg/dL N 8.5-10.1 Total Protein 8.0 g/dL N 6.4-8.2 Albumin 3.8 g/dL N 3.4-5.0 Globulin 4.2 g/dL N 1.9-4.3 Alb/Glob 0.9 ratio Bilirubin,Total 0.5 mg/dL N 0.2-1.0 Sgot/Ast 18 U/L N 15-37 SGPT/Alt 23 U/L N 12-78 Alkaline Phosphatase 116 U/L N 45-117 Lactic Acid 11/15/2018 [facility] Lactic Acid 0.8 mmol/L N 0.4-1.9 [address] [place] [address] [phone] Lab Reflex >2.0 for Sepsis? Y Urine Dipstick 11/05/2018 [facility] Ua Color yellow Yellow Ua Clarity clear Clear Ua Leuko negative Negative Ua Nitrite negative Negative Ua Urobilinogen trace Low 0.2 - 1.0 E.U./dL Ua Protein trace Negative Ua PH 8.0 High 6.5-7.5 Ua Blood negative Negative Ua Specific [place] 1.015 1.010-1.030 Ua Ketones negative Negative Ua Bilirubin negative Negative Ua Glucose negative Negative Blood Culture 09/16/2018 [facility] Blood Culture NO GROWTH: FINAL 4, [address] Aerobic <SEE NOTE> [place] [address] [phone] Blood Culture Anaerobic NO GROWTH: FINAL <SEE NOTE> 6 CBC W/Automated Diff 09/16/2018 [facility] White Blood 7.7 K/uL N 3.1-10.[address] Count [place] [address] [phone] Red Blood Count 4.70 M/uL N 3.90-5.40 Hemoglobin 13.6 gm/dL N 11.6-15.8 Hematocrit 39.8 % N 36.0-46.1 Mean Cell Volume 84.7 fl N 80.9-99.0 Mean Corpuscular HGB 28.9 pg N 25.9-32.7 Mean Corpuscular HGB Conc 34.2 g/dL N 30.8-34.3 Platelet Count 250 K/uL N 155-360 Red Cell Distri Width SD 39.6 fl N 3-47 Red Cell Distri Width %CV 13.1 % N 11.7-14.4 Mean Platelet Volume 12.2 fL N 8.9-12.4 Neut% 49.9 % N 40.4-72.8 Lymph % 37.8 % N 20.0-42.0 Stephens % 11.1 % N 4.3-13.2 Eo% 0.9 % N 0.0-6.6 Bas% 0.3 % N 0.0-1.1 Neut# 3.84 K/uL N 1.8-7.0 Lymph # 2.91 K/uL N 1.0-4.0 Stephens # 0.85 K/uL N 0.3-0.9 Eos # 0.07 K/uL N 0.0-0.5 Baso # 0.02 K/uL N 0.0-0.1 Laboratory test 09/16/2018 [facility] Salicylate < 1.7 mg/dL Low 2.8-20.0 7 finding [address] [place] [address] [phone] Lactic Acid 09/16/2018 [facility] Lactic Acid 1.5 mmol/L N 0.4-1.9 [address] [place] [address] [phone] Lab Reflex >2.0 for Sepsis? Y Comprehensive Metabolic 09/16/2018 [facility] Glucose 85 mg/dL N 74-106 Panel [address] [place] [address] [phone] BUN 10 mg/dL N 7-18 Creatinine 1.0 mg/dL N 0.6-1.3 Glom Filtration Rate, Estimate >60 mL/min >60 If >60 mL/min >60 8 BUN/Creat 10.0 ratio Sodium 138 mmol/L N 136-145 Potassium 3.1 mmol/L Low 3.5-5.1 Chloride 103 mmol/L N 98-107 Carbon Dioxide 24 mmol/L N 21-32 Anion Gap 11 mEq/L N 8-16 Calcium 8.6 mg/dL N 8.5-10.1 Total Protein 8.0 g/dL N 6.4-8.2 Albumin 3.8 g/dL N 3.4-5.0 Globulin 4.2 g/dL N 1.9-4.3 Alb/Glob 0.9 ratio Bilirubin,Total 0.7 mg/dL N 0.2-1.0 Sgot/Ast 12 U/L Low 15-37 9 SGPT/Alt 18 U/L N 12-78 Alkaline Phosphatase 108 U/L N 45-117 Laboratory test finding 09/16/2018 [facility] Magnesium 2.2 mg/dL N 1.8-2.4 [address] [place] [address] [phone] CK 84 U/L N 26-192 HCG,Serum (Qualitative) NEGATIVE (Negative) 10 Acetaminophen < 2.0 ug/mL Low 10.0-30.0 11 Ethyl Alcohol < 3.0 mg/dL Blood Culture 09/16/2018 [facility] Blood Culture NO GROWTH: FINAL [address] Aerobic <SEE NOTE> [place] [address] [phone] Blood Culture Anaerobic NO GROWTH: FINAL <SEE NOTE> 13 Laboratory test 05/01/2018 [facility] C-Reactive < 2.9 mg/L <3.0 [address] Protein,[place] [address] [phone] Uric Acid 3.2 mg/dL N 2.6-6.0 Calcium 8.7 mg/dL N 8.5-10.1 Total Protein 7.3 g/dL N 6.4-8.2 Albumin 3.7 g/dL N 3.4-5.0 Alb/Glob 1.0 ratio Alkaline Phosphatase 97 U/L N 45-117 Rheumatoid Factor Screen < 10.0 IU/mL N 0.0-15.0 Globulin 3.6 g/dL N 1.9-4.3 Sedimentation Rate 13 mm/hr N 0-20 15 Antinuclear Antibodies, Ifa Negative . 16 Laboratory test 03/31/2018 [facility] Thyroid Stim 1.53 N 0.30-4.[address] Hormone uIU/mL [place], [place] [id number] [phone] Glycohemoglobin 03/31/2018 [facility] Glycohemoglobin 5.7 % N 4.2-6.[address] (A1c) [place] [address] [phone] eAG 117 mg/dL Comprehensive Metabolic 03/31/2018 [facility] Glucose 82 mg/dL N 74-[address] [place] [address] [phone] BUN 8 mg/dL N 7-18 Creatinine 0.6 mg/dL N 0.6-1.3 Glom Filtration Rate, Estimate >60 mL/min >60 If >60 mL/min >60 18 BUN/Creat 13.3 ratio Sodium 141 mmol/L N 136-145 Potassium 4.1 mmol/L N 3.5-5.1 Chloride 105 mmol/L N 98-107 Carbon Dioxide 29 mmol/L N 21-32 Anion Gap 7 mEq/L Low 8-16 Calcium 8.5 mg/dL N 8.5-10.1 Total Protein 7.2 g/dL N 6.4-8.2 Albumin 3.6 g/dL N 3.4-5.0 Globulin 3.6 g/dL N 1.9-4.3 Alb/Glob 1.0 ratio Bilirubin,Total 0.5 mg/dL N 0.2-1.0 Sgot/Ast 13 U/L Low 15-37 19 SGPT/Alt 16 U/L N 12-78 Alkaline Phosphatase 99 U/L N 45-117 CBS W/Automated Diff 03/31/2018 [facility] White Blood 5.2 K/uL N 3.1-10.[address] Count [place], [place] [id number] [phone] Red Blood Count 4.32 M/uL N 3.90-5.40 Hemoglobin 12.5 gm/dL N 11.6-15.8 Hematocrit 38.3 % N 36.0-46.1 Mean Cell Volume 88.7 fl N 80.9-99.0 Mean Corpuscular HGB 28.9 pg N 25.9-32.7 Mean Corpuscular HGB Conc 32.6 g/dL N 30.8-34.3 Platelet Count 206 K/uL N 155-360 Red Cell Distri Width SD 41.0 fl N 3-47 Red Cell Distri Width %CV 13.1 % N 11.7-14.4 Mean Platelet Volume 12.9 fL High 8.9-12.4 Neut% 44.6 % N 40.4-72.8 Lymph % 36.2 % N 20.0-42.0 Stephens % 9.9 % N 4.3-13.2 Eo% 8.9 % High 0.0-6.6 Bas% 0.4 % N 0.0-1.1 Neut# 2.30 K/uL N 1.8-7.0 Lymph # 1.87 K/uL N 1.0-4.0 Stephens # 0.51 K/uL N 0.3-0.9 Eos # 0.46 K/uL N 0.0-0.5 Baso # 0.02 K/uL N 0.0-0.1 Urine Dipstick 03/31/2018 [facility] Ua Color dark yellow Yellow Ua Clarity clear Clear Ua Leuko negative Negative Ua Nitrite negative Negative Ua Urobilinogen 0.2 0.2 - 1.0 E.U./dL Ua Protein negative Negative Ua PH 5.0 Low 6.5-7.5 Ua Blood 3+ High Negative Ua Specific [place] 1.020 1.010-1.030 Ua Ketones negative Negative Ua Bilirubin negative Negative Ua Glucose negative Negative Laboratory 11/05/2017 [facility] Urine HCG NEGATIVE Negative 20, 21 test finding [address] (Qualitative) [place], [place] [id number] [phone] Iron-Tibc-%Sat 06/19/2017 [facility] Serum Iron 68 g/dL N 50-[address] [place], [place] [id number] [phone] Total Iron Binding Capacity 388 g/dL N 250-450 Transferrin %Saturation 18 % N 12-57 Reflex add FT3? N Reflex add FT4? Y CBS W/Automated Diff 06/19/2017 [facility] White Blood 5.0 K/uL N 3.1-10.[address] Count [place], [place] [id number] [phone] Red Blood Count 4.43 M/uL N 3.90-5.40 Hemoglobin 13.4 gm/dL N 11.6-15.8 Hematocrit 39.6 % N 36.0-46.1 Mean Cell Volume 89.4 fl N 80.9-99.0 Mean Corpuscular HGB 30.2 pg N 25.9-32.7 Mean Corpuscular HGB Conc 33.8 g/dL N 30.8-34.3 Platelet Count 203 K/uL N 150-400 Red Cell Distri Width SD 40.4 fl N 3-47 Red Cell Distri Width %CV 12.6 % N 11.7-14.4 Mean Platelet Volume 12.8 fL High 8.9-12.4 Neut% 62.0 % N 40.4-72.8 Lymph % 27.4 % N 20.0-42.0 Stephens % 5.4 % N 4.3-13.2 Eo% 4.8 % N 0.0-6.6 Bas% 0.4 % N 0.0-1.1 Neut# 3.08 K/uL N 1.8-7.0 Lymph # 1.36 K/uL N 1.0-4.0 Stephens # 0.27 K/uL Low 0.3-0.9 Eos # 0.24 K/uL N 0.0-0.5 Baso # 0.02 K/uL N 0.0-0.1 TSH Reflex FT4 06/19/2017 [facility] Thyroid Stim 0.67 uIU/mL N 0.30-4.20 And/Or FT3 [address] Hormone [place], [place] [id number] [phone] Reflex add FT3? N Reflex add FT4? Y Laboratory test 06/19/2017 [facility] Vitamin 24.6 Low 30.0-100.0 [address] D,25-Hydroxy ng/mL [place], [place] [id number] [phone] Comprehensive 06/19/2017 [facility] Glucose 86 mg/dL N 74-106 Metabolic Panel [address] [place] [address] [phone] BUN 13 mg/dL N 7-18 Creatinine 0.6 mg/dL N 0.6-1.3 Glom Filtration Rate, Estimate >60 mL/min >60 If >60 mL/min >60 24 BUN/Creat 21.6 ratio Sodium 142 mmol/L N 136-145 Potassium 4.2 mmol/L N 3.5-5.1 Chloride 112 mmol/L High 98-107 Carbon Dioxide 24 mmol/L N 21-32 Anion Gap 6 mEq/L Low 8-16 Calcium 9.1 mg/dL N 8.5-10.1 Total Protein 7.7 g/dL N 6.4-8.2 Albumin 3.7 g/dL N 3.4-5.0 Globulin 4.0 g/dL N 1.9-4.3 Alb/Glob 0.9 ratio Bilirubin,Total 0.5 mg/dL N 0.2-1.0 Sgot/Ast 12 U/L Low 15-37 25 SGPT/Alt 15 U/L N 12-78 Alkaline Phosphatase 94 U/L N 45-117 Reflex add FT3? N Reflex add FT4? Y Laboratory 09/25/2016 [facility] H. Pylori Stool Negative N Negative 26, 27 test finding [address] [place] [address] [phone] Laboratory 03/27/2016 [facility] [place], Biopsy See Note 28 test finding 134 [place] [address] [phone] Arthritis 07/14/2013 [facility] Sedimentation 12 mm/hr 0-20 Panel([place] [address] Rate ) [place] [address] [phone] Rheumatoid Factor Screen NEGATIVE Negative Uric Acid 3.7 mg/dL 2.1-7.4 Antinuclear Antibodies, Ifa Negative . 29 CBC W/Automated Diff 07/14/2013 [facility] White Blood 4.6 K/uL 3.1-10.[address] [place] [address] [phone] Red Blood Count 4.23 M/uL 3.90-5.40 Hemoglobin 12.7 gm/dL 11.6-15.8 Hematocrit 37.7 % 36.0-46.1 Mean Cell Volume 89.1 fl 80.9-99.0 Mean Corpuscular HGB 30.0 pg 25.9-32.7 Mean Corpuscular HGB Conc 33.7 g/dL 30.8-34.3 Platelet Count 173 K/uL 155-360 Red Cell Distri Width SD 42.1 fl 3-47 Red Cell Distri Width %CV 13.1 % 11.7-14.4 Mean Platelet Volume 13.2 fL High 8.9-12.4 Neut% 49.9 % 40.4-72.8 Lymph % 35.6 % 17.0-46.1 Stephens % 9.3 % 4.3-13.2 Eo% 4.8 % 0.0-6.6 Bas% 0.4 % 0.0-1.1 Neut# 2.30 K/uL 1.0-7.0 Lymph # 1.64 K/uL 0.8-3.4 Stephens # 0.43 K/uL 0.3-0.9 Eos # 0.22 K/uL 0.0-0.5 Baso # 0.02 K/uL 0.0-0.1 CBC 06/13/2013 [facility] White Blood Count 5.8 K/uL 3.1-10.[address] [place] [address] [phone] Red Blood Count 3.75 M/uL Low 3.90-5.40 Hemoglobin 10.9 gm/dL Low 11.6-15.8 Hematocrit 34.7 % Low 36.0-46.1 Mean Cell Volume 92.5 fl 80.9-99.0 Mean Corpuscular HGB 29.1 pg 25.9-32.7 Mean Corpuscular HGB Conc 31.4 g/dL 30.8-34.3 Platelet Count 162 K/uL 155-360 Red Cell Distri Width %CV 13.7 % 11.7-14.4 Mean Platelet Volume 12.7 fL High 8.9-12.4 CBC 06/12/2013 [facility] White Blood Count 5.7 K/uL 3.1-10.7 [address] [place] [address] [phone] Red Blood Count 3.77 M/uL Low 3.90-5.40 Hemoglobin 11.2 gm/dL Low 11.6-15.8 Hematocrit 33.9 % Low 36.0-46.1 Mean Cell Volume 89.9 fl 80.9-99.0 Mean Corpuscular HGB 29.7 pg 25.9-32.7 Mean Corpuscular HGB Conc 33.0 g/dL 30.8-34.3 Platelet Count 172 K/uL 155-360 Red Cell Distri Width %CV 13.4 % 11.7-14.4 Mean Platelet Volume 11.4 fL 8.9-12.4 Hemoglobin/Hematocrit 06/12/2013 [facility] Hemoglobin 11.0 Low 11.6-15.[address] gm/[place] [address] [phone] Hematocrit 34.3 % Low 36.0-46.1 Urine Screen 06/11/2013 [facility] Urine Color YELLOW Yellow [address] [place] [address] [phone] Urine Clarity CLEAR Clear Urine Glucose - Dipstick NEGATIVE mg/dL Negative Urine Bilirubin - Dipstick NEGATIVE Negative Urine Ketone NEGATIVE mg/dL Negative Urine Specific [place] <=1.005 Low 1.010-1.030 Urine Blood NEGATIVE Negative Urine PH 7.0 6.5-7.5 Urine Protein - Dipstick NEGATIVE mg/dL Negative Urine Urobilinogen - Dipstick 0.2 E.U./dL 0.2-1.0 Urine Nitrite - Dipstick NEGATIVE Negative Urine Leuk Esterase NEGATIVE Negative 1 N/V, PAIN ABDOM 2 Method: Quidel QuickVue One-Step Immunoassay 3 Note: Persistent reduction for 3 months or more in an eGFR <60 mL/min/1.73 m2 defines CKD. Patients with eGFR values >/=60 mL/min/1.73 m2 may also have CKD if evidence of persistent proteinuria is present. The original MDRD equation for estimated GFR is not valid for patients less than 18 years of age. Additional information may be found at www.kdoqi.org. 4 OVERDOSE ON UNKNOWN SUBSTANCE? 5 NO GROWTH: FINAL REPORT 6 NO GROWTH: FINAL REPORT 7 THERAPEUTIC RANGE: 15-30 mg/dL POTENTIAL TOXICITY VARIES WITH TIME FROM INGESTION. PLEASE CONSULT APPROPRIATE NOMOGRAM. 8 Note: Persistent reduction for 3 months or more in an eGFR <60 mL/min/1.73 m2 defines CKD. Patients with eGFR values >/=60 mL/min/1.73 m2 may also have CKD if evidence of persistent proteinuria is present. The original MDRD equation for estimated GFR is not valid for patients less than 18 years of age. Additional information may be found at www.kdoqi.org. 9 Values below the stated reference ranges of AST and ALT can be seen in normal populations. Clinical correlation is suggested. 10 Method: Quidel QuickVue One-Step Immunoassay 11 Acetaminophen concentration >150 ug/mL at four hours after ingestion and 50.0 ug/mL at twelve hours after ingestion are often associated with toxic reactions. 12 NO GROWTH: FINAL REPORT 13 NO GROWTH: FINAL REPORT 14 R53.83 15 Method: Sediplast Modified Westergren 16 Negative <1:80 Borderline 1:80 Positive >1:80 Performed at: RN - [facility] [address] [id number] Bean Snipper: Jenn Horowitz MD, Phone: [phone] 17 Elevated levels of HbA1c suggest the need for more aggressive treatment of glycemia. The [place] Diabetes Association recommends that a primary goal of therapy should be a HbA1c of <7% and that physicians should re-evaluate the treatment regimen in patients with HbA1c values consistently >8%. 18 Note: Persistent reduction for 3 months or more in an eGFR <60 mL/min/1.73 m2 defines CKD. Patients with eGFR values >/=60 mL/min/1.73 m2 may also have CKD if evidence of persistent proteinuria is present. The original MDRD equation for estimated GFR is not valid for patients less than 18 years of age. Additional information may be found at www.kdoqi.org. 19 Values below the stated reference ranges of AST and ALT can be seen in normal populations. Clinical correlation is suggested. 20 COLONSCOPY,GASTROSCOPY RESCHEDULED 21 FIRST MORNING SPECIMENS GENERALLY CONTAIN THE HIGHEST CONCENTRATION OF HCG AND ARE RECOMMENDED FOR EARLY DETECTION OF . Method: Quidel QuickVue One-Step Immunoassay 22 N92.0 R53.83 23 Vitamin D deficiency has been defined by the [place] of [employer] and an Endocrine Society practice guideline as a level of serum 25-OH vitamin D less than 20 ng/mL (1,2). The Endocrine Society went on to further define vitamin D insufficiency as a level between 21 and 29 ng/mL (2). 1. IOM ([place] of [employer]). 2010. Dietary reference intakes for calcium and D. [place]: The National Academies Press. 2. Neris MF, Zhen NC, Golden OSBORNE, et al. Evaluation, treatment, and prevention of vitamin D deficiency: an Endocrine Society clinical practice guideline. JCEM. 2010; 96(7):1911-30. Performed at: RN - [facility] [address] [id number] Bean Snipper: Jenn Horowitz MD, Phone: [phone] 24 Note: Persistent reduction for 3 months or more in an eGFR <60 mL/min/1.73 m2 defines CKD. Patients with eGFR values >/=60 mL/min/1.73 m2 may also have CKD if evidence of persistent proteinuria is present. The original MDRD equation for estimated GFR is not valid for patients less than 18 years of age. Additional information may be found at www.kdoqi.org. 25 Values below the stated reference ranges of AST and ALT can be seen in normal populations. Clinical correlation is suggested. 26 R10.13 27 Performed at: RN - [facility] [address] [id number] Bean Snipper: Jenn Horowitz MD, Phone: [phone] 28 OPERATION/PROCEDURE Colonoscopy, gastroscopy DIAGNOSIS: PART 1: "COLON, RANDOM, BIOPSY": - BENIGN COLONIC MUCOSA WITH NO SIGNIFICANT PATHOLOGIC ABNORMALITIES. - NO EVIDENCE OF MICROSCOPIC COLITIS. PART 2: "DUODENUM, BIOPSY": - BENIGN SMALL INTESTINAL MUCOSA WITH NO SIGNIFICANT PATHOLOGIC ABNORMALITIES. - NO EVIDENCE OF VILLOUS BLUNTING OR INCREASED INTRAEPITHELIAL LYMPHOCYTES. EP/clf 1018 GROSS Received in formalin in two properly labeled containers with the patient's name and accession number. Part one is designated, "RANDOM COLON BIOPSIES". The specimen consists of multiple pieces of russell, soft rubbery tissue measuring 0.5 x 0.4 x 0.2 cm. in aggregate. Submitted entirely, one cassette. Part two is designated, "DUODENAL BIOPSIES". The specimen consists of multiple pieces of russell, soft, rubbery tissue measuring 0.6 x 0.5 x 0.3 cm. in aggregate. Submitted entirely, one cassette. CC/clf PRE OPERATIVE DIAGNOSIS GI bleed REVIEW CODE CODE: I Signed Electronically signed Kizzy ESPARZA MD [id number] Negative <1:80 Borderline 1:80 Positive >1:80 Performed at: RN - [facility] [address] [id number] Bean Snipper: Jenn Horowitz MD, Phone: [phone] Procedures Date Code Description Status 01/25/2019 04044 Brief Emotional/Behav Assessment W/ Scoring Doc Per Completed Standard Inst 12/18/2018 74761 Echocardiogram Complete Completed 11/05/2018 07437 Brief Emotional/Behav Assessment W/ Scoring Doc Per Completed Standard Inst 11/05/2017 92949 Colonoscopy Completed 11/05/2017 99869 EGD W/Guide Wire & Dilation Completed 11/05/2017 69480 EGD With Biopsy Completed 11/05/2017 [id number] Colonoscopy Completed 06/19/2017 04119 Theraputic Or Diagnostic Injection Completed 03/27/2016 16217 Colonoscopy With Biopsy Completed 03/27/2016 [id number] Colonoscopy Completed 03/13/2016 [id number] Colonoscopy Completed 01/07/2014 25 Disability Form Completed 08/16/2013 29109 Radiology, Knee 3 Views Completed 07/16/2013 45284 Radiology, L-S Spine Complete Completed Encounters Type Date Location Provider Dx Diagnosis Office Visit 01/25/2019 Family Medicine Rhoda Us, F33.9 Major depressive 3:[address]p [address] PNP-BC, CLAY HOISTER, disorder, Ibclc recurrent, unspecified G89.4 Chronic pain syndrome F41.0 Panic disorder [episodic paroxysmal anxiety] K21.0 Gastro-esophageal reflux disease with esophagitis G43.009 Migraine w/o aura, not intractable, w/o status migrainosus Office Visit 11/05/2018 1:30p Primary Care Juan, F33.9 Major depressive Office [place] RPAC disorder, recurrent, unspecified F41.9 Anxiety disorder, unspecified F13.10 Sedative, hypnotic or anxiolytic abuse, uncomplicated G89.4 Chronic pain syndrome Office Visit 09/29/2018 1:00p Primary Care Juan, F33.9 Major depressive Office Nisreen, RPAC disorder, recurrent, unspecified F41.9 Anxiety disorder, unspecified Office Visit 05/01/2018 1:00p Primary Care Juan, F34.1 Dysthymic Office [place], RPAC disorder R53.83 Other fatigue G89.4 Chronic pain syndrome Office Visit 03/31/2018 10:45a Primary Care Juan, I83.812 Varicose veins Office Nisreen, RPAC of left lower extremity with pain F34.1 Dysthymic disorder F41.0 Panic disorder [episodic paroxysmal anxiety] R53.83 Other fatigue W57.xxxA Bit/stung by nonvenom insect & oth nonvenom arthropods, init Office Visit 11/11/2017 4:00p Leon Sood MD R13.13 Dysphagia, pharyngeal phase K59.09 Other constipation Office Visit 10/21/2017 1:15p Leon Sood MD R10.9 Unspecified abdominal pain K59.09 Other constipation K92.2 Gastrointestinal hemorrhage, unspecified R13.10 Dysphagia, unspecified Office Visit 07/28/2017 1:30p Primary Care Wisner, G89.4 Chronic pain Office [facility] syndrome Office Visit 06/19/2017 10:30a Primary Care Wisner, R51 Headache Office [facility] G89.4 Chronic pain syndrome N92.0 Excessive and frequent menstruation with regular cycle R53.83 Other fatigue Z80.3 Family history of malignant neoplasm of breast Office Visit 06/10/2017 11:30a Leon Sood MD K59.09 Other constipation R13.10 Dysphagia, unspecified Office Visit 09/19/2016 9:00a Leon Sood MD R10.13 Epigastric pain K59.09 Other constipation Office Visit 03/26/2016 2:57p Catalino Mcmillan MD R10.9 Unspecified abdominal pain R10.9 Unspecified abdominal pain Office Visit 12/02/2013 2:39p All Vang 099.56 Chlamydia [facility] J., DO [facility] Infection Peritoneum 599.70 Hematuria, Unspecified Office Visit 11/30/2013 5:03p [place] Xavier Platt, 599.70 Hematuria, Regional M.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 724.3 Sciatica 724.4 Neuritis Or Radiculitis Thoracic Or Lumbosacral Unspec Office Visit 09/13/2013 1:00p Surgical Office Ramon Reece, 454.8 Varicose Veins Of The Lower Extremities, W/Other Complicatn 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 Office Visit 08/16/2013 Orthopaedic Karlos Zamora 717.7 Chondromalacia Of 8:30a Office MD Mya, FACS [place] 719.46 Pain Joint Lower Leg Office Visit 08/02/2013 Orthopaedic Karlos Zamora 715.15 Osteoarthrosis 10:15a Office MD Mya, FACS Localized Prim Pelvic & Thigh 719.45 Pain Joint Pelvic Region & Thigh Office Visit 07/21/2013 9:00a Orthopaedic Office Karlos Zamora, 724.2 Venessa MCDONALD, FACS 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 724.3 Sciatica Office Visit 07/16/2013 10:00a Orthopaedic Office Karlos Zamora, 724.2 Venessa MCDONALD, FACS 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 724.3 Sciatica Office Visit 07/14/2013 Orthopaedic Karlos Zamora 719.45 Pain Joint Pelvic 8:15a Office MD Mya, FACS Region & Thigh Office Visit 06/23/2013 Karlos [place] 722.10 Intervertebral Disc 9:30a Office MD Mya, FACS Displacement Lumbar W/O Myelopathy 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 724.3 Sciatica 724.3 Sciatica 724.4 Neuritis Or Radiculitis Thoracic Or Lumbosacral Unspec 724.4 Neuritis Or Radiculitis Thoracic Or Lumbosacral Unspec 719.45 Pain Joint Pelvic Region & Thigh 719.45 Pain Joint Pelvic Region & Thigh Office Visit 06/11/2013 2:59p Surgical Office Deepak Campa, 789.03 Pain Abdominal Right Lower Quadrant E888.9 Unspecified Fall Office Visit 11/25/2011 1:20p Surgical Office Ramon Reece, 454.8 Varicose Veins Of The Lower Extremities, W/Other Complicatn Plan of Treatment Future Appointment(s):02/08/2019 3:30 pm - Rhoda Us, PNP-BC, CLAY HOISTER, Ibclc at [facility]
[2019-02-12 20:55] VITALS: BP 110/71
--- NOTE | 2019-02-12 21:04 | UC ---
UC General HPI - HPI Summary HPI Summary: DAY 2 OF FREQUENT-BURNING URINATION. NO FEVER, FLANK PAIN OR ABDOMINAL PAIN. HX UTI'S AND THIS FEELS THE SAME. - History of Current Complaint Chief Complaint: UCGU Stated Complaint: PAIN UPON URINATION Time Seen by Provider: 02/12/19 20:57 Hx Obtained From: Patient Jhony Last Menstrual Period: [id number] Onset/Duration: Gradual Onset Pain Intensity: 9 Associated Signs & Symptoms: Negative: Abdominal Pain - Allergy/Home Medications Allergies/Adverse Reactions: Allergies Allergy/AdvReac Type Severity Reaction Status Date / Time environmental Allergy Sneezing Uncoded 02/12/19 20:55 Home Medications: Home Medications Gabapentin CAP(*) [Neurontin 300 CAP(*)] 300 mg PO BID 02/12/19 [History Confirmed 02/12/19] PMH/Surg Hx/FS Hx/Imm Hx - Additional Past Medical History Additional PMH: BACK PAIN, VARICOSE VEINS, UTI'S GI/ History: Gastroesophageal Reflux - Surgical History Surgical History: Yes Surgery Procedure, Year, and Place: appy, cholecystectomy, tubal lig, lithotripsy, hip surgery in February 2014 (right), - Family History Known Family History: Positive: None, Hypertension - Social History Alcohol Use: Rare Substance Use Type: None Smoking Status (MU): Never Smoked Tobacco - Immunization History Most Recent Influenza Vaccination: 3302-1669 Most Recent Tetanus Shot: unknown Review of Systems All Other Systems Reviewed And Are Negative: Yes Constitutional: Negative: Fever Gastrointestinal: Negative: Abdominal Pain, Vomiting, Nausea Genitourinary: Positive: Dysuria, Frequency, Urgency. Negative: Hematuria, Vaginal/Penile Discharge Musculoskeletal: Positive: Other: - CHRONIC BACK PAIN Physical Exam Triage Information Reviewed: Yes Appearance: Well-Appearing Vital Signs: Initial Vital Signs Temp 98.7 F 02/12/19 20:51 Pulse 89 02/12/19 20:51 Resp 18 02/12/19 20:51 BP 110/71 02/12/19 20:51 Pulse Ox 100 02/12/19 20:51 Vital Signs Reviewed: Yes Eyes: Positive: Conjunctiva Clear Respiratory: Positive: Lungs clear Cardiovascular: Positive: RRR, No Murmur Abdomen Description: Positive: Nontender, No Organomegaly, Soft. Negative: CVA Tenderness (R), CVA Tenderness (L) Bowel Sounds: Positive: Present Neurological: Positive: Alert Psychological: Positive: Age Appropriate Behavior Skin Exam: Normal Diagnostics - Laboratory Lab Results: U/A= 1+ BLOOD, PROTEIN(TRACE), 1+ LEUKOCYTES. CULTURE IS PENDING. Course/Dx - Differential Dx - Multi-Symptom Differential Diagnoses: Other - NON TOXIC. NO CONCERN FOR PYELONEPHRITIS. WILL TX PRESUMPTIVELY FOR A UTI. - Diagnoses Provider Diagnosis: Dysuria Discharge - Sign-Out/Discharge Documenting (check all that apply): Patient Departure All imaging exams completed and their final reports reviewed: No Studies - Discharge Plan Condition: Stable Disposition: HOME Prescriptions: Nitrofurantoin Monohyd/M-Cryst [Macrobid 100 mg Capsule] 100 mg PO BID 5 Days # 10 cap Patient Education Materials: Dysuria (ED) Additional Instructions: FOLLOW UP WITH YOUR PCP AT [facility] IN 5-7 DAYS - Billing Disposition and Condition Condition: STABLE Disposition: Home
[2019-02-12] MEDS ORDERED: Nitrofurantoin Macrocrystals* 50 MG CAP PO ONE (21:08)
--- NOTE | 2019-02-16 07:11 | UC ---
- Progress Note Progress Note: +BV will call in Flagyl 500 mg bid x 7 days may cont. Macrobid Course/Dx - Diagnoses Provider Diagnoses: Dysuria Discharge - Sign-Out/Discharge Documenting (check all that apply): Patient Departure All imaging exams completed and their final reports reviewed: No Studies - Discharge Plan Condition: Stable Disposition: HOME Prescriptions: Nitrofurantoin Monohyd/M-Cryst [Macrobid 100 mg Capsule] 100 mg PO BID 5 Days # 10 cap Patient Education Materials: Dysuria (ED) Referrals: No Primary Care Phys,NOPCP [Primary Care Provider] - Additional Instructions: FOLLOW UP WITH YOUR PCP AT [facility] IN 5-7 DAYS - Billing Disposition and Condition Condition: STABLE Disposition: Home
== END 2019-02-12 21:28 | disposition home or self-care (01) ==
LOC: UCCORT 20:41
DX: R30.0 Dysuria (principal); J30.89 Other allergic rhinitis; K21.9 Gastro-esophageal reflux disease without esophagitis; M54.5 Low back pain; G89.29 Other chronic pain
CPT/HCPCS: 81003; 87077; 87086; 99212; A9270-GY; G0463

== ENCOUNTER 2020-01-29 17:57 | Emergency (ER) | payer OTHER ==
--- NOTE | 2020-01-29 18:30 | UC ---
Ear Complaint HPI - HPI Summary HPI Summary: 39yo female presenting with b/l ear pain x4-5 months. Patient states pain has been intermittent but has worsened in the last week. Notes some decreased hearing. Also notes OSBORNE x6 days and "very painful bump behind the right ear." States right ear hurts worse than left. States 2 weeks ago she noticed blood on the q tip from her left ear and from her right ear yesterday. Denies purulent drainage from ears. Denies tinnitus and vertigo. Denies fever and chills. Denies UTI symptoms. Notes she does have seasonal allergies. Taking tylenol with minimal pain relief. - History of Current Complaint Stated Complaint: EAR COMPLAINT Hx Obtained From: Patient Hx Last Menstrual Period: - Allergies/Home Medications Allergies/Adverse Reactions: Allergies Allergy/AdvReac Type Severity Reaction Status Date / Time environmental Allergy Sneezing Uncoded 01/29/20 18:36 Home Medications: Home Medications Albuterol HFA INHALER* [Ventolin HFA Inhaler*] 2 puff INH Q4H PRN #1 mdi [Rx Confirmed 01/29/20] Acetaminophen TAB* [Tylenol TAB*] 1,000 mg PO TID PRN 04/03/17 [History Confirmed 01/29/20] Pantoprazole Sodium 20 mg PO DAILY 03/25/18 [History Confirmed 01/29/20] Meclizine TAB* [Antivert 12.5 TAB*] 25 mg PO TID PRN 12/24/18 [History Confirmed 01/29/20] Gabapentin CAP(*) [Neurontin 300 CAP(*)] 400 mg PO BID 02/12/19 [History Confirmed 02/12/19] Amoxicillin/Clavulanate TAB* [Augmentin TAB 875*] 875 mg PO BID #14 tab [Rx] DULoxetine DR CAP* [Cymbalta CAP*] 30 mg PO DAILY 01/29/20 [History Confirmed ] Ferrous Sulfate TAB* 325 mg PO DAILY 01/29/20 [History Confirmed 01/29/20] Loratadine [Allergy Relief] 10 mg PO BEDTIME 01/29/20 [History Confirmed ] hydrOXYzine HCL TAB* [Atarax 10 MG TAB*] 10 mg PO TID PRN 01/29/20 [History Confirmed 01/29/20] PMH/Surg Hx/FS Hx/Imm Hx GI/ History: Gastroesophageal Reflux Psychological History: Anxiety - Surgical History Surgical History: Yes Surgery Procedure, Year, and Place: appy, cholecystectomy, tubal lig, lithotripsy, hip surgery in February 2014 (right), - Family History Known Family History: Positive: None, Hypertension - Social History Alcohol Use: Rare Substance Use Type: None Smoking Status (MU): Never Smoked Tobacco - Immunization History Most Recent Influenza Vaccination: 9903-3304 Most Recent Tetanus Shot: unknown Review of Systems All Other Systems Reviewed And Are Negative: Yes Constitutional: Positive: Negative. Negative: Fever, Chills ENT: Positive: Ear Ache - b/l worse on right Respiratory: Positive: Negative Cardiovascular: Positive: Negative Gastrointestinal: Positive: Negative Musculoskeletal: Positive: Negative Neurological/Mental Status: Positive: Headache Psychological: Positive: Anxious Physical Exam - Summary Physical Exam Summary: Vital Signs Reviewed: Yes A+Ox3, no distress, well-appearing Eyes: Conjunctiva Clear ENT: Hearing grossly normal, left TM clear, right TM mild bulging and whitish discoloration, no blood noted in EAC. uvula midline, moist, no exudate, no erythema Neck: Positive: Supple, R post auricular adenopathy and tenderness Respiratory: Positive: No respiratory distress, No accessory muscle use + CTA throughout no w/r Cardiovascular: RRR nl s1, s2 no m/r CBT <2 sec Musculoskeletal Exam: ORDOÑEZ x 4 without difficulty Neurological: Positive: Alert Psychological: Positive: age appropriate behavior Skin: Positive: no rash, no ecchymosis Vital Signs: Vital Signs (72 hours) 01/29/20 18:53 Temperature 98.6 F Pulse Rate 86 Respiratory 16 Rate Blood Pressure 117/73 (mmHg) O2 Sat by Pulse 99 Oximetry Ear Complaint Course/Dx - Course Course Of Treatment: I discussed otitis media with patient and treated with augmentin. Informed the patient that she should not place any objects in the ears including q tips. Instructed to continue with symptomatic treatment and to follow up with pcp or ENT referral if symptoms persist or worsen. Patient voiced understanding and agreed with treatment plan. - Differential Dx/Diagnosis Provider Diagnosis: Otitis media of right ear Discharge ED - Sign-Out/Discharge Documenting (check all that apply): Patient Departure All imaging exams completed and their final reports reviewed: No Studies - Discharge Plan Condition: Stable Disposition: HOME Prescriptions: Amoxicillin/Clavulanate TAB* [Augmentin TAB 875*] 875 mg PO BID #14 tab Patient Education Materials: Ear Infection (ED) Referrals: Rob Faria PA [Primary Care Provider] - Ned Barksdale MD [Medical Doctor] - If Needed Additional Instructions: Take Augmentin as prescribed. Continue with tylenol and/or ibuprofen as directed for pain relief. Do not place anything in the ears, including Q tips. You may place a warm compress over the swollen lymph node a few times daily to help alleviate pain and swelling. Follow up with your primary care provider or the ENT referral listed below if your symptoms worsen or do not improve with treatment. - Billing Disposition and Condition Condition: STABLE Disposition: Home
--- OUTSIDE RECORDS SUMMARY | 2020-01-29 18:34 | XMS REPORT | Continuity of Care Document ---
:1980 Author Organization [facility] Address [address] [place] [address] Phone Care Team Providers Name Role Phone BLANCA NEVES MD Unavailable Unavailable Allergies, Adverse Reactions, Alerts Substance Reaction Status Substance Type Unknown Medications Medication Instructions Dosage Effective Dates Status Comments (start - stop) Colace 100 mg take 1 capsule by 100 MG - Active Workers capsule oral route every compensation day at bedtime as needed gabapentin 400 mg take 1 capsule by 400 MG - Active capsule oral route 3 times every day iron 325 mg (65 mg take 1 tablet by 325 MG - Active iron) tablet oral route every day duloxetine 60 mg take 1 capsule by 60 MG - Active capsule,delayed oral route 2 times release every day doxepin 10 mg take 1 capsule by 10 MG - Active capsule oral route 2 times every day Vitamin B-1 100 mg - Active tablet pramipexole 0.25 mg take 1 tablet by 0.25 MG - Active tablet oral route 3 times every day ibuprofen 400 mg take 1 tablet by - Active tablet oral route every 4 - 6 hours as needed pantoprazole 20 mg take 2 tablet by 40 MG - Active tablet,delayed oral route every release day Vitamin D3 2,000 - Active unit capsule ProAir RespiClick inhale 2 puff by 180 MCG - Active 90 mcg/actuation inhalation route breath activated every 4 - 6 hours as needed Problems Condition Effective Dates (start - stop) Clinical Status Low back pain Pain in unspecified lower leg Paresthesias/numbness Pain in right leg - Other specified postprocedural states - Arthrodesis status - Low back pain Other intervertebral disc degeneration, lumbar region Low back pain Low back pain Encounter for other specified surgical - aftercare Low back pain Encounter for other specified surgical aftercare Thrush, oral Low back pain Encounter for other specified surgical aftercare Pain in left leg Acute cystitis with hematuria Low back pain 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, lumbar region Osteophyte, vertebrae - Spinal stenosis, lumbar region without - neurogenic lars Oth specific arthropathies, NEC, oth - site Low back pain Other intervertebral disc - degeneration, lumbar region Other cord compression - Low back pain Other intervertebral disc - degeneration, lumbar region Low back pain Pain in unspecified lower leg 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, lumbar region Arthrodesis status - Low back pain 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, lumbar region Fall Risk Assessment - Low back pain Other intervertebral disc - degeneration, lumbar region Low back pain Pain in leg, unspecified Pain in right leg - Pain in left leg - Other injury of unspecified body - region, subs Unspecified fall, subsequent encounter - Spondylosis w/o myelopathy or Chronic radiculopathy, lumbar region Procedures Procedure Date Procedure Unknown Results Test Name Date and Time Measure Units Reference Range Abnormal Flag Status Comments Unknown Encounters Encounter Practice Location Reason(s) Diagnoses Date Provider Providers Description For Visit Copied on Encounter 2019 - [facility], Neurosurgery KHALID. 46 33-57 0 [facility], [place], [place], [place], [address]. [address], tel:+-468 tel:[phone] 2019 - [facility] Low back [facility], Neurosurgery painPain in MARY ANN. 46 33-[address] [facility], legParesthesias/ [facility] numbnessPain in [place], [place] [address]. [address], [place] tel:+607 tel:+ [phone] 0001 - [facility] Pain Spondylosis w/o Dec-0 [facility], Management myelopathy or 4-201 SAJID. 52 33-57 radiculopathy, [address], [place], regionOther Floor 2, [place], [place], [place], [address], [place] [address]. tel:+60 s status tel:[phone] 0001 - [facility] Low back pain Oct-2 [facility], Neurosurgery 5-201 ADESH. 46 33[address]57 [address] , [place], [place], [place], [place], [address]. [address], [place] tel:+60 tel:[phone] 0001 - [facility] Other Oct-0 [facility], Neurosurgery intervertebral 4-201 ADESH. 46 33-57 disc [address] degeneration, St, Street, lumbar region [place], [place], [address]. [address], [place] tel:+60 tel:[phone] 0001 - [facility] Low back pain Oct-0 [facility], Neurosurgery 2-201 ADESH. 46 33[address]57 [address] , [place], [place], [place], [place], [address]. [address], [place] tel:+607 tel:[phone] 0001 - [facility] Low back Sep-2 [facility], Neurosurgery painEncounter 4-201 ADESH. 46 33-57 for other [address] specified , [place], [place], [place], [place], [address]. [address], [place] tel:+607 tel:[phone] 0001 - [facility] Low back Aug-3 [facility], Neurosurgery painEncounter 0-201 MARY ANN. 46 33-57 for other [address] specified [place], [address], [facility], [place], [place], oral [address]. [address], [place] tel:+ tel: [phone] 0001 - [facility] Low back Aug-2 [facility], Neurosurgery painEncounter 3-201 MARY ANN. 46 33-57 for other [address], Street, surgical Bal Bal aftercarePain in [place], [place] legAcute [address]. [address], [place] cystitis with tel:+ tel: hematuria [phone] 0001 - [facility] Low back Latrell-1 [facility], Neurosurgery painSpondylosis 1-201 ADESH. 46 33-57 w/o myelopathy [address], Street, radiculopathy, [place] lumbar [place], regionOsteophyte [address]. [address], [place] , tel: tel: vertebraeSpinal [phone] stenosis, lumbar region without neurogenic claudOth specific arthropathies, NEC, oth site 0001 - [facility] Low back Apr-3 [facility], Neurosurgery painOther 0-201 ADE. 46 33-57 intervertebral [address], [address], degeneration, Bal Bal lumbar [place], region[place] cord [address]. [address], [place] compression tel: tel: [phone] 0001 - [facility] Low back Apr-0 [facility], Neurosurgery painOther 4-201 OFELIA. 46 33-57 intervertebral [address], Street, degeneration, [facility] lumbar region [place], [place], [address]. [address], [place] tel:+60 tel: [phone] 0001 - [facility] Low back Jarred-3 [facility], Neurosurgery painPain in 0-201 MARY ANN. 46 33-57 unspecified [address], Street, legSpondylosis Bal Bal w/o myelopathy [place] [address]. [address], [place] radiculopathy, tel:+ tel:+ lumbar [phone] regionArthrodesi s status 0001 - [facility] Low back May- [facility], Neurosurgery painSpondylosis ADESH. 46 33-57 w/o myelopathy [address] , Street, radiculopathy, Bal Bal lumbar region [place], [place], [address]. [address], [place] tel:+607 tel:[phone] 0001 - [facility] Fall Risk [facility] [employer] [facility], Neurosurgery AssessmentLow OFELIA. 46 33-57 back painOther [address], Street, disc [facility] degeneration, [place], [place] [address]. [address], [place] tel:+607 tel: [phone] 0001 - [facility] [employer] [facility], Neurosurgery OFELIA. 46 33-[address], [address], [place], [place], [place], [address]. [address], [place] tel:+607 tel:+ [phone] 0001 - [facility], Neurosurgery painPain in leg, MARY ANN. 46 33-57 unspecifiedPain [address] in right legPain [facility], in left legOther [facility] injury of [place], [place] body [address]. [address], [place] region, tel:+ tel: subsUnspecified [phone] fall, subsequent encounter Family History Family Member Diagnosis Age At Onset Mother Alive and well Father Alive and well Immunizations Vaccine Date Status Comments Immunization Unknown Payers Payer name Insurance type Covered green party ID Authorization(s) Unknown Social History Type Description Quantity Date Captured Comments Alcohol Use Details Unknown Caffeine Use Details Unknown Tobacco Use Status Unknown Smoking Status Unknown Vital Signs Date / Height Weight BMI Pulse Blood Temperature Respiratory Body Head BMI Time: Rate Pressure Rate Surface Circumference percentile Area Unknown Chief Complaint And Reason For Visit No information Reason For Referral Reason For Referral Unknown Plan Of Care Date Type Action Status Referral Ordered: ordered CLARIBEL MAGAÑA MD -Neurology (related to Paresthesias/numbness) Referral Referred To: ordered CLARIBEL MAGAÑA MD [address] [facility] [place], [address] [phone] Ordered: Referrals: Neurology. CLARIBEL MAGAÑA MD. Evaluate and treat Referral Referred To: ordered abdominal binder Ordered: Referrals: abdominal binder. Consult Referral Ordered: ordered MRI of lumbar spine W/o Contrast Then W/ Contrast Referral Ordered: ordered Pain Management (related to Low back pain) Referral Ordered: ordered Referrals: Pain Management Referral Ordered: ordered Neurology (related to Other intervertebral disc degeneration, lumbar region ) Referral Ordered: ordered Referrals: Neurology Referral Ordered: ordered Home Care (related to Low back pain) Referral Referred To: ordered HOSP BED TOTAL ELECT W/ KADIE Ordered: Referrals: HOSP BED TOTAL ELECT W/ KADIE Referral Referred To: ordered WALKER FOLDING WHEELED W/O S Ordered: Referrals: WALKER FOLDING WHEELED W/O S Referral Referred To: ordered CANE ADJUST/FIXED WITH TIP Ordered: Referrals: CANE ADJUST/FIXED WITH TIP Referral Ordered: ordered Referrals: Home Care. Evaluate and treat Referral Referred To: ordered Compression Stocking Below Knee 18-30mm Hg Each Ordered: Referrals: Compression Stocking Below Knee 18-30mm Hg Each Referral Ordered: ordered Xray Spine Lumbar, 2 or 3 views Referral Referred To: ordered compression stockings Ordered: Referrals: compression stockings Referral Ordered: ordered MRI of lumbar spine W/o Contrast Referral Ordered: ordered Physical Therapy (related to Low back pain) Referral Referred To: ordered Physical Therapy Ordered: Referrals: Physical Therapy. Consult. Diagnostic testing Referral Ordered: ordered Xray Spine Lumbar, min 4 views Appointment ELIAN GEIGER Date Type Problem Goal Intervention Status Start Date Unknown History Of Present Illness Encounter Date Complaint History Of Present Illness No information Functional Status Encounter Date Functional Assessment Cognitive Assessment Unknown Medications Administered Medication Instructions Dosage Effective Dates (start - stop) Status Comments Drug Treatment Unknown Instructions Date Instruction Additional Information Have the EMG studies done by the Related to Low back pain Neurologist and have them [facility] a [facility] spineXRay LS spineGentle home exercises and stretchesFall and lifting precautions, use the assistive device as helpfulFollow up with your family doctor for the leg painPhysical therapy referralMay transition to cane as safe for youMay transition to abdominal binder and wean from the LSO braceReferral to [facility]Please call with the name of a Pain Clinic in [place] and I will provide a referral for you Risks and benefits of new medication Related to Spondylosis w/o discussed. Comprehensive pain management myelopathy or radiculopathy, plan discussed in detail. Self symptom lumbar region management with home exercise program recommended. We don't have medical records from previous pain management physicians. I will review her previous medications records and UDS result and recommend further treatment options. Nystatin RX provided Related to Thrush, oral Risks and benefits of new medication Related to Encounter for other discussed.Follow up with your attending specified surgical aftercare physician in as scheduled with an Xray 1 hour prior to the visit at [facility] schedule physical therapy when feeling better Appropriate activities, good body mechanics, limit lifting to less than 10lb, include rest periodsWear the back brace when active and in car, may remove during quiet activitiesDaily walking, avoid activities that cause painMay shower avoid direct water hitting the incisional area, avoid bath and swimLimit driving to when not taking pain medic and you are strong and alertChange up sitting position every 30-45 minutesInclude fluids and healthy foods in diet and monitor bowel movements, prune juice or dried prunes, ghulam carter or tea as toleratedIf constipated take Colace OTC as directed, Yoon MOM if no BM as expectedPlease call the office for any questions, concerns or condition change including redness, swelling or drainage from incision, severe increase in pain, fever, bowel or bladder dysfunction, calf pain or tenderness in lower legs, severe headache. Discussed wound care Discussed post op care/precautions continue physical therapy Advance activity as tolerated Follow up with your attending physician Related to Encounter for other in 4 weeks with an Xray 1 hour prior to specified surgical aftercare the visit at [facility] schedule physical therapy when feeling better Appropriate activities, good body mechanics, limit lifting to less than 10lb, include rest periodsWear the back brace when active and in car, may remove during quiet activitiesDaily walking, avoid activities that cause painMay shower avoid direct water hitting the incisional area, avoid bath and swimLimit driving to when not taking pain medic and you are strong and alertChange up sitting position every 30-45 minutesInclude fluids and healthy foods in diet and monitor bowel movements, prune juice or dried prunes, ghulam carter or tea as toleratedIf constipated take Colace OTC as directed, Yoon MOM if no BM as expectedPlease call the office for any questions, concerns or condition change including redness, swelling or drainage from incision, severe increase in pain, fever, bowel or bladder dysfunction, calf pain or tenderness in lower legs, severe headache. Advance activity as tolerated Discussed wound care Discussed post op care/precautions schedule physical therapy Risks and benefits of new medication Related to Low back pain discussed. We will check to see if the signature can Related to Low back pain be added to the prior request. We will have the patient follow-up with Dr. Cardoza in the next few weeks for reevaluation and to try to get the surgery approved. She otherwise this has been looking for a new pain management clinic. I did tell the patient if a referral is needed she may contact our office and we will provide a referral to the pain management. On today's visit I did give her an out of work note until next visit. Physical therapy to reduce pain levels Related to Low back pain and increase functionFor out of work note requests patient needs a Functional Capacity Exam, this will be requested from Workers CompensationFollow up 3 months, sooner as needed Continue daily home exercises and stretchesMay use low heat and ice alternating 20 minutes each four times daily as needed for pain. Avoid placing the heat pad or ice directly next to the skin, use skin barrierRemain activeFall precautions discussedDiscussion of appropriate body mechanics and ergonomics Awaiting approval for XLIF L3-4 with Related to Low back pain posterior pedicle screws as requested by Dr. Marroquin. She will f/u in 6 weeks. Patient is requesting out of work Related to Low back pain noteFall precautions are discussed Continue daily home exercises and stretchesMay use low heat and ice alternating 20 minutes each four times daily as needed for pain. Avoid placing the heat pad or ice directly next to the skin, use skin barrierRemain activeFall precautions discussedDiscussion of appropriate body mechanics and ergonomics
--- OUTSIDE RECORDS SUMMARY | 2020-01-29 18:34 | XMS REPORT | Continuity of Care Document ---
:1980 Author Organization 0001 - [facility] Address [address] [place] [address] Phone Support Name Relationship Address Phone Mary Ann Singh [address] [phone] [place] [address] ARLEI HODGE Unavailable Unavailable Unavailable Allergies, Adverse Reactions, Alerts Substance [...] For Visit Copied on Encounter 2019 - [employer], [address] [place], [address], [place] tel: [phone] 0001 - [facility] Low back [facility] [employer], Neurosurgery painPain in MARY ANN. 46 33-57 unspecified 0 [facility], legParesthesias/ [facility] numbnessPain in [place], [place], [place], [place] [address]. [address], [place] tel:60 tel: [phone] 0001 - [facility] Pain Spondylosis w/o Dec-0 [facility], Management myelopathy or 4-201 SAJID. 52 33-57 radiculopathy, [address], [place], regionOther Floor 2, [place], [place], [place], [address], [place] [address]. tel:+160 s status tel:+[phone] 0001 - [facility] Low back pain Oct-2 [facility], Neurosurgery 5-201 ADESH. 46 33-57 [address] , [place], [place], [place], [place], [address]. [address], [place] tel:+1607 tel:[phone] 0001 - [facility] Other Oct-0 [facility], Neurosurgery intervertebral 4-201 ADESH. 46 33-57 disc [address] degeneration, , Street, lumbar region [place], [place], [place], [address]. [address], [place] tel:+60 tel:[phone] 0001 - [facility] Low back pain Oct-0 [facility], Neurosurgery 2-201 ADESH. 46 33-57 [address] , [place], [place], [place], [place], [address]. [address], [place] tel:+607 tel:[phone] 0001 - [facility] Low back Sep-2 [facility], Neurosurgery painEncounter 4-201 ADESH. 46 33-57 for other [address] specified , [place], [place], [place], [place], [address]. [address], [place] tel:+1607 tel:[phone] 0001 - [facility] Low back Aug-3 [facility], Neurosurgery painEncounter 0-201 MARY ANN. 46 33-57 for other [address] specified [place], [place], [facility], [place], [place], [place] [address]. [address], [place] tel:+1607 tel:[phone] 0001 - [facility] Low back Aug-2 [facility], Neurosurgery painEncounter 3-201 MARY ANN. 46 33-57 for other [address], Street, surgical [facility] aftercarePain in [place], [place], left legAcute [address]. [address], [place] cystitis with tel:+ tel:+ hematuria [phone] 0001 - [facility] Low back Latrell-1 [facility], Neurosurgery painSpondylosis 1-201 ADESH. 46 33-57 w/o myelopathy [address], Street, radiculopathy, Bal Bal lumbar [place], [place], regionOsteophyte [address]. [address], [place] , tel: tel:60 vertebraeSpinal [phone] stenosis, lumbar region without neurogenic claudOth specific arthropathies, NEC, oth site 0001 - [facility] Low back Apr-3 [facility], Neurosurgery painOther 0-201 ADE. 46 33-57 intervertebral [address], Street, degeneration, Bal Bal lumbar [place], [place], region[place] cord [address]. [address], [place] compression tel: tel: [phone] 0001 - [facility] Low back Apr-0 [facility], Neurosurgery painOther 4-201 OFELIA. 46 33-57 intervertebral [address], Street, degeneration, Bal Bal lumbar region [place], [place], [address]. [address], [place] tel: tel: [phone] 0001 - [facility] Low back Jarred-3 [facility], Neurosurgery painPain in 0-201 MARY ANN. 46 33-57 unspecified [address], Street, legSpondylosis Bal Bal w/o myelopathy [place], [place] [address]. [address], [place] radiculopathy, tel:607 tel:60 lumbar [phone] regionArthrodesi s status 0001 - [facility] Low back Aug-2 [facility], Neurosurgery painSpondylosis 8-201 ADESH. 46 33-57 w/o myelopathy [address] , Street, radiculopathy, Bal Bal lumbar region [place], [place], [place], [address]. [address], [place] tel:+607 tel:[phone] 0001 - [facility] Fall Risk [facility] [employer], Neurosurgery AssessmentLow OFELIA. 46 33-57 back painOther [address], Street, disc [facility] degeneration, [place], [place], [place] [address]. [address], [place] tel:+607 tel:[phone] 0001 - [facility], Neurosurgery OFELIA. 46 33-[address], [address], [place], [place], [place], [address]. [address], [place] tel:+607 tel:[phone] 0001 - G Low back [facility], Neurosurgery painPain in leg, MARY ANN. 46 33-57 unspecifiedPain [address] in right legPain [facility], in left legOther [facility] injury of [place], [place], [place] body [address]. [address], [place] region, tel:+607 tel:+60 subsUnspecified [phone] fall, subsequent encounter Family History Family Member Diagnosis Age At Onset Mother Alive and well Father Alive and well Immunizations Vaccine Date Status Comments Immunization Unknown Payers Payer name Insurance type Covered alliance party ID Authorization(s) Unknown Social History Type Description Quantity Date Captured Comments Unknown Vital Signs Date / Height Weight BMI Pulse Blood Temperature Respiratory Body Head BMI Time: Rate Pressure Rate Surface Circumference percentile Area Unknown Chief Complaint And Reason For Visit No information Reason For Referral Reason For Referral Unknown Plan Of Care Date Type Action Status Referral Ordered: ordered CLARIBEL MAGAÑA MD -Neurology (related to Paresthesias/numbness) Referral Ordered: ordered MRI of lumbar spine W/o Contrast Then W/ Contrast Referral Referred To: ordered CLARIBEL MAGAÑA MD 8 [facility] [place], [address] [phone] Ordered: Referrals: Neurology. CLARIBEL MAGAÑA MD. Evaluate and treat Referral Referred To: ordered abdominal binder Ordered: Referrals: abdominal binder. Consult Referral Ordered: ordered Pain Management (related to [...] Neurologist and have them send a report hereMRI LS spineXRay LS spineGentle home exercises and stretchesFall and lifting precautions, use the assistive device as helpfulFollow up with your family doctor for the leg painPhysical therapy referralMay transition to cane as safe for youMay transition to abdominal binder and wean from the LSO braceReferral to [facility]Please call with the name of a Pain Clinic in [place] and I will provide a referral for [...] 1 hour prior to the visit at [facility] schedule physical therapy when feeling better Appropriate [...] legs, severe headache. Advance activity as tolerated continue physical therapy Discussed post op care/precautions Discussed wound care Follow up with your attending physician Related to Encounter for other in 4 weeks with an Xray 1 hour prior to specified surgical aftercare the visit at [facility] schedule physical therapy when feeling better Appropriate [...] or tenderness in lower legs, severe headache. schedule physical therapy Discussed post op care/precautions Discussed wound care Advance activity as tolerated Risks and benefits of new medication Related [...]
--- OUTSIDE RECORDS SUMMARY | 2020-01-29 18:34 | XMS REPORT | Continuity of Care Document ---
:1980 Author Organization [facility] - [facility] Address [address] [place] [address] Phone Care Team Providers Name Role Phone MASOUD SIMONS MD Unavailable Unavailable Allergies, Adverse Reactions, Alerts [...] - stop) Clinical Status Low back pain Other specified postprocedural states - Low back pain Pain in unspecified lower [...] Providers Description For Visit Copied on Encounter 0001 - [facility] Low back Dec- KRISTYN [employer], Neurosurgery painOther 7 ADESH. 46 33-57 specified 0 [place] Shell postprocedural [place], [place], [place], [address]. [address], tel:+279 tel:+[phone] 0001 - [facility] JEREZ [employer], Neurosurgery 0- MARY ANN. 46 33-57 0 S[place] Shell [facility], [place], [place], [place], [address]. [address], [place] tel:+60 tel:+ [phone] 0001 - [facility] Low back Oct- [facility] [employer], Neurosurgery painPain in MARY ANN. 46 33-57 unspecified 0 [place] Shell lower [place], [place], legParesthesias/ [facility] numbnessPain in [place], [place] [address]. [address], [place] tel:+60 tel:+ [phone] 0001 - [facility] Pain Spondylosis w/o Dec- OLSEN [employer], Management myelopathy or SAJID. 52 33-57 radiculopathy, 9 [place] Shell lumbar [place], [place], regionOther Floor 2, [place], [place], [place], [address], [place] [address]. tel:+ s status tel:+ [phone] 0001 - [facility] Low back pain Oct-2 [facility] [employer], Neurosurgery 5-201 ADESH. 46 33-[address] [facility], [place], [place], [place], [address]. [address], [place] tel:+60 tel:+[phone] 0001 - [facility] Other Oct-0 [employer] [employer], Neurosurgery intervertebral 4-201 ADESH. 46 33-57 disc 9 [place] Shell [facility], , [place], lumbar region [place], [place], [place], [address]. [address], [place] tel:+60 tel:+[phone] 0001 - [facility] Low back pain Oct-0 [employer] [employer], Neurosurgery 2-201 ADESH. 46 33-57 9 S[place]manmart[place] Shell [facility], [place], [place], [place], [address]. [address], [place] tel:+60 tel:+[phone] 0001 - [facility] Low back Sep-2 [facility] [employer], Neurosurgery painEncounter 4-201 ADESH. 46 33-57 for other [address], surgical [place] aftercare [place], [place], [place], [address]. [address], [place] tel:+ tel: [phone] 0001 - [facility] Low back Aug-3 [facility] [employer], Neurosurgery painEncounter 0-201 MARY ANN. 46 33-57 for other [address], Street, surgical [place] [facility], [place], [place], [place] [address]. [address], [place] tel:+60 tel:+ [phone] 0001 - [facility] Low back Aug-2 [facility] [employer], Neurosurgery painEncounter 3-201 MARY ANN. 46 33-57 for other 9 [place] Shell specified Blayne Cisneros, surgical [place] aftercarePain in [place], left legAcute [address]. [address], [place] cystitis with tel: tel: hematuria [phone] 0001 - [facility] Low back Latrell-1 [employer] [employer], Neurosurgery painSpondylosis 1-201 ADESH. 46 33-57 w/o myelopathy [address], radiculopathy, Bal Bal lumbar [place], regionOsteophyte [address]. [address], [place] , tel:+ tel:60 vertebraeSpinal [phone] stenosis, lumbar region without neurogenic claudOth specific arthropathies, NEC, oth site 0001 - [facility] Low back Apr-3 [facility] [employer], Neurosurgery painOther 0-201 ADESH. 46 33-57 intervertebral [address], Street, degeneration, Bal Bal lumbar [place], region[place] cord [address]. [address], [place] compression tel:60 tel: [phone] 0001 - [facility] Low back Apr-0 ANDUSKO [employer], Neurosurgery painOther 4-201 OFELIA. 46 33-57 intervertebral [address], Street, degeneration, [employer] lumbar region [place], [place], [place], [address]. [address], [place] tel:+ tel:+ [phone] 0001 - [facility] Low back Jarred-3 [facility] [employer], Neurosurgery painPain in 0-201 MARY ANN. 46 33-57 unspecified [address], Street, legSpondylosis [place] w/o myelopathy [place], [place] [address]. [address], [place] radiculopathy, tel:+ tel:+ lumbar [phone] regionArthrodesi s status 0001 - [facility] Low back Aug- KRISTYN [employer], Neurosurgery painSpondylosis 8- ADESH. 46 33-57 w/o myelopathy [address], Street, radiculopathy, [place] lumbar region [place], [place], [place], [address]. [address], [place] tel:+ tel: [phone] 0001 - [facility] Fall Risk [employer], Neurosurgery AssessmentLow 9 OFELIA. 46 33-57 back painOther [address], Street, disc Bal Bal degeneration, [place], [place] region [address]. [address], [place] tel:+ tel: [phone] 0001 - [facility] ANDUSKO [employer], Neurosurgery 8 OFELIA. 46 33-[address], [address], [place], [place], [place], [address]. [address], [place] tel:+60 tel: [phone] 0001 - [facility] Low back Latrell- [facility] [employer], Neurosurgery painPain in leg, 8-201 MARY ANN. 46 33-57 unspecifiedPain 8 [address] Shell in right legPain Street, [place], in left legOther [place] injury [place], [place] body [address]. [address], [place] region, tel:+60 tel:+ subsUnspecified [phone] fall, subsequent encounter Family History Family Member Diagnosis Age At Onset Mother Alive and well Father Alive and well Immunizations Vaccine Date Status Comments Immunization Unknown Payers Payer name Insurance type Covered constitution party ID Authorization(s) Unknown Social History Type [...] Referred To: ordered CLARIBEL MAGAÑA MD 8 [facility] [place], [address] [phone] Ordered: Referrals: Neurology. CLARIBEL MAGAÑA MD. Evaluate [...] Xray Spine Lumbar, min 4 views Appointment ANGELA GEIGER Date Type Problem Goal Intervention Status [...] Neurologist and have them send a report hereMR LS spineXRay LS spineGentle home exercises and stretchesFall and lifting precautions, use the assistive device as helpfulFollow up with your family doctor for the leg painPhysical therapy referralMay transition to cane as safe for youMay transition to abdominal binder and wean from the LSO braceReferral to [facility] with [facility] name of a Pain Clinic in [place] and I will provide a referral for [...] 1 hour prior to the visit at [facility] schedule physical therapy when feeling better Appropriate [...] toleratedIf constipated take Colace OTC as directed, Car MOM if no BM as expectedPlease call [...] to specified surgical aftercare the visit at [facility] schedule physical therapy when feeling better Appropriate [...] toleratedIf constipated take Colace OTC as directed, Car AUSTIN if no BM as expectedPlease call the office for any questions, concerns or condition change including redness, swelling or drainage from incision, severe increase in pain, fever, bowel or bladder dysfunction, calf pain or tenderness in lower legs, severe headache. Discussed wound care Discussed post op care/precautions schedule physical therapy Advance activity as tolerated Risks and benefits of new medication Related to Low back pain discussed. We will check to see if the signature can Related to Low back pain be added to the prior request. We will have the patient follow-up with Dr. Simons in the next few weeks for reevaluation [...]
--- OUTSIDE RECORDS SUMMARY | 2020-01-29 18:34 | XMS REPORT | Continuity of Care Document ---
:1980 Author Organization 0001 - [facility] Address [address] [place] [address] Phone Care Team Providers Name Role Phone MARY ANN CONNER Unavailable Unavailable Allergies, Adverse Reactions, Alerts Substance [...] on Encounter 0001 - [facility] Low back JEREZ [employer], Neurosurgery painPain in MARY ANN. 46 33-57 unspecified 0 Suleman [facility], legParesthesias/ Bal [place] numbnessPain in [place], [place], [place], [place] [address]. [address], tel:+607 tel:+[phone] 0001 - [facility] Pain STINGU [employer], Management RUDY. 52 33-57 0 Suleman [facility], [address], [place], [place], [place], [address]. [address], [place] tel:+607 tel:+[phone] 0001 - [facility] Pain Spondylosis w/o Dec-0 [facility] [employer], Management myelopathy or 4-201 SAJID. 52 33-57 radiculopathy, [address], [place], regionOther Floor 2, [place], [place], [address], [place] [address]. tel:+160 s status tel:+[phone] 0001 - [facility] Low back pain Oct-2 [facility] [employer], Neurosurgery 5-201 ADESH. 46 33-[address], [place], [place], [place], [place], [address]. [address], [place] tel:+60 tel:+[phone] 0001 - [facility] Other Oct-0 [facility] [employer], Neurosurgery intervertebral 4-201 ADESH. 46 33-57 disc 9 [address] degeneration, St, Street, lumbar region [place], [place], [place], [address]. [address], [place] tel:+60 tel:+[phone] 0001 - [facility] Low back pain Oct-0 [facility] [employer], Neurosurgery 2-201 ADESH. 46 33-57 9 [place] Shell , [place], [place], [place], [place], [address]. [address], [place] tel:+60 tel:+[phone] 0001 - [facility] Low back Sep-2 [facility] [employer], Neurosurgery painEncounter 4-201 ADESH. 46 33-57 for other 9 Suleman Shlel specified , [place], [facility] [place], [place], [address]. [address], [place] tel:+607 tel:+[phone] 0001 - [facility] Low back Aug-3 [facility] [employer], Neurosurgery painEncounter 0-201 MARY ANN. 46 33-57 for other [address], Street, surgical [place] aftercareThrush, [facility], [place], [place], [place] [address]. [address], [place] tel:+ tel: [phone] 0001 - [facility] Low back Aug-2 [facility] [employer], Neurosurgery painEncounter 3-201 MARY ANN. 46 33-57 for other [address], Street, surgical [place] aftercarePain in [place], [place], [place] legAcute [address]. [address], [place] cystitis with tel:+60 tel:60 hematuria [phone] 0001 - [facility] Low back Latrell-1 [facility] [employer], Neurosurgery painSpondylosis 1-201 ADESH. 46 33-57 w/o myelopathy [address], Street, radiculopathy, Incentient lumbar [place], [place], regionOsteophyte [address]. [address], [place] , tel:+ tel: vertebraeSpinal [phone] stenosis, lumbar region without neurogenic claudOth specific arthropathies, NEC, oth site 0001 - [facility] Low back Apr-3 [facility] [employer], Neurosurgery painOther 0-201 ADESH. 46 33-57 intervertebral [address], Street, degeneration, Bal Bal lumbar [place], [place], region[place] cord [address]. [address], [place] compression tel:+ tel: [phone] 0001 - [facility] Low back Apr-0 ANDUSKO [employer], Neurosurgery painOther 4-201 OFELIA. 46 33-57 intervertebral [address], Street, degeneration, In[employer] lumbar region [place], [place], [place], [address]. [address], [place] tel:+60 tel: [phone] 0001 - [facility] Low back Jarred-3 [facility] [employer], Neurosurgery painPain in 0-201 MARY ANN. 46 33-57 unspecified [address], Street, legSpondylosis Incentient w/o myelopathy [place], [place], [place] [address]. [address], [place] radiculopathy, tel:+ tel:+ lumbar [phone] regionArthrodesi s status 0001 - [facility] Low back May- KRISTYN S Inc, Neurosurgery painSpondylosis ADESH. 46 33-57 w/o myelopathy 8 [place] Shell or , Street, radiculopathy, Bal Bal lumbar region [place], [place], [place], [address]. [address], [place] tel:+607 tel:+[phone] 0001 - [facility] Fall Risk [employer], Neurosurgery AssessmentLow OFELIA. 46 33-57 back painOther 8 [place] Shell intervertebral , Street, disc [facility] degeneration, [place], [place], [place] region [address]. [address], [place] tel:+607 tel:+ [phone] 0001 - [facility] ANDSp[employer], Neurosurgery OFELIA. 46 33-[address], [place], [place], [place], [address]. [address], [place] tel:+607 tel:+[phone] 0001 - [facility] Low back JEREZ S Inc, Neurosurgery painPain in leg, MARY ANN. 46 33-57 unspecifiedPain 8 [place] Shell in right legPain [facility], in left legOther Bal Bal injury of [place], [place], [place] [address]. [address], [place] region, tel:+60 tel:+ subsUnspecified [phone] fall, subsequent encounter Family History Family Member Diagnosis Age At Onset Mother Alive and well Father Alive and well Immunizations Vaccine Date Status Comments Immunization Unknown Payers Payer name Insurance type Covered democrat ID Authorization(s) Unknown Social History Type Description [...] Referral Referred To: ordered CLARIBEL MAGAÑA MD [address] [place] [address], [address] [phone] Ordered: Referrals: Neurology. CLARIBEL MAGAÑA MD. Evaluate [...] Therapy (related to Low back pain) Referral Ordered: ordered Xray Spine Lumbar, min 4 views Referral Referred To: ordered Physical Therapy Ordered: Referrals: Physical Therapy. Consult. Diagnostic testing Date Type Problem Goal Intervention Status Start [...] Neurolog[facility] and [facility] LS spineGentle home exercises and stretchesFall and lifting precautions, use the assistive device as helpfulFollow up with your family doctor for the leg painPhysical therapy referralMay transition to cane as safe for youMay transition to abdominal binder and wean from the LSO braceReferral to Neurologist [facility]Please call with the name of a Pain Clinic in [place] and I will provide a referral for [...] 1 hour prior to the visit at [facility] schedule physical therapy when feeling better Appropriate [...] to specified surgical aftercare the visit at [facility] schedule physical therapy when feeling better Appropriate [...]
--- OUTSIDE RECORDS SUMMARY | 2020-01-29 18:34 | XMS REPORT | Continuity of Care Document ---
:1980 Author Organization [facility] Address [address] [place] [address] Phone Care Team Providers Name Role Phone [...] on Encounter 0001 - [facility] Low back [employer], Neurosurgery painPain in MARY ANN. 46 33-57 unspecified 0 Suleman [facility], legParesthesias/ [place] numbnessPain in [place], [place], [place] [address]. [address], tel:+607 tel:+[phone] 0001 - [facility] J[facility]Z [employer], Neurosurgery MARY ANN. 46 33-57 0 [facility], [place], [place], [place], [address]. [address], [place] tel:+607 tel:+[phone] 0001 - [facility] Pain Spondylosis w/o Dec-0 [facility] [employer], Management myelopathy or 4-201 SAJID. 52 33-57 radiculopathy, 9 [place] Shell lumbar [facility], regionOther Floor 2, [place], [place], [place], [address], [place] [address]. tel:+160 s status tel:+[phone] 0001 - [facility] Low back pain Oct-2 [facility]YN [employer], Neurosurgery 5-201 ADESH. 46 33-57 9 [address] Shell , [place], [place], [place], [place], [address]. [address], [place] tel:+607 tel:+[phone] 0001 - [facility] Other Oct-0 [facility] [employer], Neurosurgery intervertebral 4-201 ADESH. 46 33-57 disc 9 [place] Shell [facility], , Street, lumbar region [place], [place], [address]. [address], [place] tel:+607 tel:+[phone] 0001 - [facility] Low back pain Oct-0 [facility]YN [employer], Neurosurgery 2-201 ADESH. 46 33-57 9 [place] Shell [facility], [place], [place], [place], [address]. [address], [place] tel:+607 tel:+[phone] 0001 - [facility] Low back Sep-2 [facility] [employer], Neurosurgery painEncounter 4-201 ADESH. 46 33-57 for other 9 [place] Shell specified [facility], [place], [place], [place], [address]. [address], [place] tel:+607 tel:+[phone] 0001 - [facility] Low back Aug-3 [facility] [employer], Neurosurgery painEncounter 0-201 MARY ANN. 46 33-57 for other [address], Street, [facility], [facility], [place], [place], [place] [address]. [address], [place] tel:+ tel: [phone] 0001 - [facility] Low back Aug-2 [facility] [employer], Neurosurgery painEncounter 3-201 MARY ANN. 46 33-57 for other [address], Street, surgical [place] aftercarePain in [place], [place], [place] legAcute [address]. [address], [place] cystitis with tel:+ tel: hematuria [phone] 0001 - [facility] Low back Latrell-1 [facility] [employer], Neurosurgery painSpondylosis 1-201 ADESH. 46 33-57 w/o myelopathy [address], Street, radiculopathy, [place] lumbar [place], region[place]steophyte [address]. [address], [place] , tel: tel: vertebraeSpinal [phone] stenosis, lumbar region without neurogenic claudOth specific arthropathies, NEC, oth site 0001 - [facility] Low back Apr-3 [facility] [employer], Neurosurgery painOther 0-201 ADE. 46 33-57 intervertebral [address], Street, degeneration, Bal Bal lumbar [place], regionOther cord [address]. [address], [place] compression tel: tel: [phone] 0001 - [facility] Low back Apr-0 [facility] [employer], Neurosurgery painOther 4-201 OFELIA. 46 33-57 intervertebral [address], Street, degeneration, [place] lumbar region [place], [place], [place], [address]. [address], [place] tel:+60 tel: [phone] 0001 - [facility] Low back Jarred-3 [facility] [employer], Neurosurgery painPain in 0-201 MARY ANN. 46 33-57 unspecified [address], Street, legSpondylosis Bal Bal w/o myelopathy [place], [place] [address]. [address], [place] radiculopathy, tel:+ tel:+ lumbar [phone] regionArthrodesi s status 0001 - [facility] Low back May- KRISTYN S Inc, Neurosurgery painSpondylosis ADESH. 46 33-57 w/o myelopathy 8 [place] Shell or , Street, radiculopathy, Bal Bal lumbar region [place], [place], [place], [address]. [address], [place] tel:+607 tel:60 [phone] 0001 - [facility] Fall Risk ANDUSKO [employer], Neurosurgery AssessmentLow OFELIA. 46 33-57 back painOther [address], Street, disc [facility] degeneration, [place], [place] [address]. [address], [place] tel:+607 tel:+ [phone] 0001 - [facility] ANDUSKO S Inc, Neurosurgery OFELIA. 46 33-[address], [place], [place], [place], [address]. [address], [place] tel:+607 tel:+ [phone] 0001 - [facility] Low back JEREZ S Inc, Neurosurgery painPain in leg, MARY ANN. 46 33-57 unspecifiedPain 8 [address] in right legPain [facility], in left legOther [facility] injury of [place], [place] body [address]. [address], [place] region, tel:+60 tel:+ subsUnspecified [phone] fall, subsequent encounter Family History Family Member Diagnosis Age At Onset Mother Alive and well Father Alive and well Immunizations Vaccine Date Status Comments Immunization Unknown Payers Payer name Insurance type Covered republican ID Authorization(s) Unknown Social History Type Description [...] Referral Referred To: ordered CLARIBEL MAGAÑA MD [address] [place] [address], [address] [phone] Ordered: Referrals: Neurology. CLARIBEL MAGAÑA MD. Evaluate [...] Neurologist and have them [facility]XRay LS spineGentle home exercises and stretchesFall and lifting precautions, use the assistive device as helpfulFollow up with your family doctor for the leg painPhysical therapy referralMay transition to cane as safe for youMay transition to abdominal binder and wean from the LSO braceReferral to Neurologist in [facility]Please call with the name of a Pain Clinic in [place] and I will provide a referral for [...] 1 hour prior to the visit at [facility] schedule physical therapy when feeling [...] to specified surgical aftercare the visit at [facility] schedule physical therapy when feeling [...]
--- OUTSIDE RECORDS SUMMARY | 2020-01-29 18:34 | XMS REPORT | Continuity of Care Document ---
:1980 External Reference #:[id number] Author Name Trey Quezada (transmitted by agent of provider Corry Kraus) Address [address] [place] [address] Problems Active Problems Provider Date Varicose veins of lower extremity Trey Quezada Onset: 04/27/2018 Body mass index 25-29 - overweight Trey Quezada Onset: 01/21/2019 Social History Type Date Description Comments Sex Unknown ETOH Use Denies alcohol use ETOH Use I haven't drank in 3 years. Tobacco Use Start: Unknown Patient has never smoked Smoking Status Reviewed: 01/05/19 Patient has never smoked Allergies, Adverse Reactions, Alerts Description No Known Drug Allergies Medications Active Medications SIG Qnty Indications Ordering Provider Date Compression Stockings 1Pair I83.892 Trey Quezada 04/27/2018 Wear Daily For 6 Months 20-30MMHG Thigh High Misc Ibuprofen po prn Unknown 600mg Tablets Gabapentin take 400 mg po I83.892 Unknown 400mg Capsules tid Tylenol po prn Unknown 325mg Tablets Albuterol Sulfate HFA Inhale 2 Puffs Q Unknown 4-6 Hours prn 108(90Base) mcg/Act Aerosol Mupirocin Apply Thin Layer Unknown 2% Ointment To Face Wounds tid Until Healed Ferosul TK 1 T PO qd Unknown 325(65Fe) mg Tablets Loratadine TK 1 T PO QHS Unknown 10mg Tablets Colace po qd Unknown 100mg Capsules Duloxetine HCL TK 1 C PO qd Unknown 30mg Caps DR Rose Immunizations CPT Code Status Date Vaccine Lot # [id number] Refused 12/13/2019 Influenza Vaccine [id number] Vital Signs Date Vital Result Comment 12/13/2019 11:44am Height 64 inches 5'4" Weight 178.00 lb BP Systolic 103 mmHg BP Diastolic 64 mmHg BMI (Body Mass Index) 30.6 kg/m2 Heart Rate 80 /min Respiratory Rate 16 /min Pain Level 8 out of 10 11/04/2019 12:00pm Height 64 inches 5'4" Weight 178.00 lb BP Systolic 110 mmHg BP Diastolic 74 mmHg BMI (Body Mass Index) 30.6 kg/m2 Heart Rate 76 /min Respiratory Rate 18 /min Pain Level 7 Results Description No Information Available Procedures Date Code Description Status 12/13/2019 21949 Duplex Scan Extremity Veins, Unilateral Or Limited Study Completed Medical Devices Description No Information Available Encounters Type Date Location Provider Dx Diagnosis Office Visit 12/13/2019 11:30a [facility] Trey Quezada M79.605 Pain in left leg Z68.30 Body mass index (BMI) 30.0-30.9, adult Office Visit 11/04/2019 11:30a [facility] Trey Quezada M79.605 Pain in left leg Z68.30 Body mass index (BMI) 30.0-30.9, adult Assessments Date Code Description Provider 12/13/2019 M79.605 Pain in left leg QuezadaTrey 12/13/2019 Z68.30 Body mass index (BMI) 30.0-30.9, adult QuezadaTrey 11/04/2019 M79.605 Pain in left leg Quezada, Trey 11/04/2019 Z68.30 Body mass index (BMI) 30.0-30.9, adult Trey Quezada Plan of Treatment 12/13/2019 - Trey QuezadaM79.605 Pain in left legZ68.30 Body mass index ( BMI) 30.0-30.9, adultComments:If you are above the age of 21 and your BMI is greater than 25 or less than 20, you should follow upwith your primary physician.Follow up:As needed. Functional Status Description No Information Available Mental Status Description No Information Available Referrals Description No Information Available
--- OUTSIDE RECORDS SUMMARY | 2020-01-29 18:34 | XMS REPORT | Continuity of Care Document ---
:1980 Author Organization [facility] Address [address] [place] [address] Phone Care Team Providers Name Role Phone [...] Encounter 0001 - [facility] Low back JEREZ [employer], Neurosurgery painPain in MARY ANN. 46 33-57 unspecified 0 Suleman [facility], legParesthesias/ [place] numbnessPain in [place], [place], [place] [address]. [address], tel:+607 tel:[phone] 0001 - [facility] Pain STINGU [employer], Management RUDY. 52 33-57 0 Suleman [facility], 2, [place], [place], [place], [address]. [address], [place] tel:+607 tel:[phone] 0001 - [facility] Pain Spondylosis w/o Dec-0 OLSEN [facility], Management myelopathy or 4-201 SAJID. 52 33-57 radiculopathy, [address], [place], regionOther Floor 2, [place], [place], [place], [address], [place] [address]. tel:+160 s status tel:[phone] 0001 - [facility] Low back pain Oct-2 KRISTYN [facility], Neurosurgery 5-201 ADESH. 46 33-[address], [place], [place], [place], [place], [address]. [address], [place] tel:+60 tel:[phone] 0001 - [facility] Other Oct-0 [facility], Neurosurgery intervertebral 4-201 ADESH. 46 33-57 disc [address] degeneration, St, Street, lumbar region [place], [place], [address]. [address], [place] tel:+60 tel:[phone] 0001 - [facility] Low back pain Oct-0 [facility], Neurosurgery 2-201 ADESH. 46 33-57 9 [address] , [place], [place], [place], [place], [address]. [address], [place] tel:+60 tel:[phone] 0001 - [facility] Low back Sep-2 [facility], Neurosurgery painEncounter 4-201 ADESH. 46 33-57 for other 9 [place] specified , [place], [facility] [place], [place], [place], [address]. [address], [place] tel:+607 tel:[phone] 0001 - [facility] Low back Aug-3 J[facility]Z [facility], Neurosurgery painEncounter 0-201 MARY ANN. 46 33-57 for other [address], Street, surgical [place] aftercareThrush, [facility], [place], [place], [place] [address]. [address], [place] tel:+ tel: [phone] 0001 - [facility] Low back Aug-2 [facility], Neurosurgery painEncounter 3-201 MARY ANN. 46 33-57 for other [address], Street, surgical [place] aftercarePain in [place], left legAcute [address]. [address], [place] cystitis with tel:+60 tel:60 hematuria [phone] 0001 - [facility] Low back Latrell-1 [facility], Neurosurgery painSpondylosis 1-201 ADESH. 46 33-57 w/o myelopathy [address], Street, radiculopathy, Mozio lumbar [place], region[place]steophyte [address]. [address], [place] , tel:+ tel: vertebraeSpinal [phone] stenosis, lumbar region without neurogenic claudOth specific arthropathies, NEC, oth site 0001 - [facility] Low back Apr-3 [facility], Neurosurgery painOther 0-201 ADESH. 46 33-57 intervertebral [address], Street, degeneration, Bal Bal lumbar [place], region[place] cord [address]. [address], [place] compression tel:+ tel: [phone] 0001 - [facility] Low back Apr-0 ANDUSKO [facility], Neurosurgery painOther 4-201 OFELIA. 46 33-57 intervertebral [address], Street, degeneration, Mozio lumbar region [place], [place], [place], [address]. [address], [place] tel:+60 tel: [phone] 0001 - [facility] Low back Jarred-3 J[facility]Z [facility], Neurosurgery painPain in 0-201 MARY ANN. 46 33-57 unspecified [address], Street, legSpondylosis Mozio w/o myelopathy [place], [place] [address]. [address], [place] radiculopathy, tel:+ tel:+ lumbar [phone] regionArthrodesi s status 0001 - [facility] Low back May- KRISTYN S Inc, Neurosurgery painSpondylosis ADESH. 46 33-57 w/o myelopathy 8 [place] or , Street, radiculopathy, Bal Bal lumbar region [place], [place], [place], [address]. [address], [place] tel:+607 tel:[phone] 0001 - [facility] Fall Risk [employer], Neurosurgery AssessmentLow OFELIA. 46 33-57 back painOther 8 [place] intervertebral , Street, disc [facility] degeneration, [place], [place] [address]. [address], [place] tel:+607 tel:[phone] 0001 - [facility] [employer], Neurosurgery OFELIA. 46 33-[address], [address], [place], [place], [place], [address]. [address], [place] tel:+607 tel:[phone] 0001 - [facility] Low back JEREZ [facility] Inc, Neurosurgery painPain in leg, MARY ANN. 46 33-57 unspecifiedPain 8 [address] in right legPain [facility], in left legOther Bal Bal injury of [place], [place] body [address]. [address], [place] region, tel:+607 tel: subsUnspecified [phone] fall, subsequent encounter Family History Family Member [...] Referred To: ordered CLARIBEL MAGAÑA MD [address] [place], [phone] Ordered: Referrals: Neurology. CLARIBEL MAGAÑA MD. Evaluate [...] from the LSO braceReferral to Neurologist [facility]Please [facility] with the name of a Pain Clinic in [place] and I will provide a referral for [...] 1 hour prior to the visit at [facility] schedule physical therapy when feeling better Appropriate [...] to specified surgical aftercare the visit at [facility] schedule physical therapy when feeling better Appropriate [...]
--- OUTSIDE RECORDS SUMMARY | 2020-01-29 18:34 | XMS REPORT | Continuity of Care Document ---
:1980 Author Organization [facility] Address [address] [place] [address] Phone Care Team Providers Name Role Phone [...] Chronic radiculopathy, lumbar region Procedures Procedure Date Office/outpatient visit,est, mod Results Test Name Date and Time Measure Units Reference Range Abnormal Flag Status Comments Unknown Encounters Encounter Practice Location Reason(s) Diagnoses Date Provider Providers Description For Visit Copied on Encounter Office/outpa 0001 - [facility] low back Low back SOLITARIO scott [facility], Neurosurgery pain painPain in MARY ANN. 46 visit,est, 33-57 (chief unspecified 0 Suleman mod Suleman complaint) [facility], [place], legParesthesias/ [place] numbnessPain in [place], [place], [place] [address]. [address], tel:+287 tel:[phone] 0001 - [facility] Pain Spondylosis w/o Dec-0 [facility], Management myelopathy or 4-201 SAJID. 52 33-57 radiculopathy, [address], [place], regionOther Floor 2, [place], [place], [place], [address], [place] [address]. tel:+60 s status tel:[phone] 0001 - [facility] Low back pain Oct-2 [facility], Neurosurgery 5-201 ADESH. 46 33-57 [address] , [place], [place], [place], [place], [address]. [address], [place] tel:+60 tel:[phone] 0001 - [facility] Other Oct-0 [facility], Neurosurgery intervertebral 4-201 ADESH. 46 33-57 disc 9 [place] degeneration, , [place], lumbar region [place], [place], [place], [address]. [address], [place] tel:+60 tel:[phone] 0001 - [facility] Low back pain Oct-0 [facility], Neurosurgery 2-201 ADESH. 46 33-57 [address] , [place], [place], [place], [place], [address]. [address], [place] tel:+607 tel:[phone] 0001 - [facility] Low back Sep-2 [facility], Neurosurgery painEncounter 4-201 ADESH. 46 33-57 for other 9 [address] [facility], [place], [place], [place], [place], [address]. [address], [place] tel:+607 tel:[phone] 0001 - [facility] Low back Aug-3 [facility], Neurosurgery painEncounter 0-201 MARY ANN. 46 33-57 for other 9 [address] [facility], [place], [place], [place], [place], [place] [address]. [address], [place] tel:+607 tel:[phone] 0001 - [facility] Low back Aug-2 [facility], Neurosurgery painEncounter 3-201 MARY ANN. 46 33-57 for other [address], Street, surgical Bal Bal aftercarePain in [place], [place], [place] legAcute [address]. [address], [place] cystitis with tel: tel: hematuria [phone] 0001 - [facility] Low back Latrell- [facility], Neurosurgery painSpondylosis 1-201 ADE. 46 33-57 w/o myelopathy [address], Street, radiculopathy, Bal Bal lumbar [place], [place] [address]. [address], [place] , tel: tel: vertebraeSpinal [phone] stenosis, lumbar region without neurogenic claudOth specific arthropathies, NEC, oth site 0001 - [facility] Low back Apr-3 [facility], Neurosurgery painOther 0-201 ADE. 46 33-57 intervertebral [address], Street, degeneration, b-datum lumbar [place], region[place] [address]. [address], [place] compression tel: tel: [phone] 0001 - [facility] Low back Apr-0 [facility], Neurosurgery painOther 4-201 OFEILA. 46 33-57 intervertebral [address], Street, degeneration, b-datum lumbar region [place], [place], [address]. [address], [place] tel: tel: [phone] 0001 - [facility] Low back Jarred-3 [facility], Neurosurgery painPain in 0-201 MARY ANN. 46 33-57 unspecified [address], Street, legSpondylosis b-datum w/o myelopathy [place], [place] [address]. [address], [place] radiculopathy, tel:60 tel: lumbar [phone] regionArthrodesi s status 0001 - [facility] Low back May-2 [facility], Neurosurgery painSpondylosis 8-201 ADE. 46 33-57 w/o myelopathy 8 [place] or , Street, radiculopathy, [facility] lumbar region [place], [place], [address]. [address], [place] tel:+607 tel:[phone] 0001 - [facility] Fall Risk Apr- ANDUSKO S Inc, Neurosurgery AssessmentLow OFELIA. 46 33-57 back painOther [address], Street, disc [facility] degeneration, [place], [place] [address]. [address], [place] tel:+607 tel:[phone] 0001 - [facility] ANDUSKO S Inc, Neurosurgery OFELIA. 46 33-[address], [address], [place], [place], [place], [address]. [address], [place] tel:+607 tel:[phone] 0001 - [facility] Low back JEREZ S Inc, Neurosurgery painPain in leg, MARY ANN. 46 33-57 unspecifiedPain 8 [address] in right legPain [facility], in left legOther [facility] injury [place], [place] [address]. [address], [place] region, tel:+607 tel:+60 subsUnspecified [phone] fall, subsequent encounter Family History Family Member Diagnosis Age At Onset Mother Alive and well Father Alive and well Immunizations Vaccine Date Status Comments Immunization Unknown Payers Payer name Insurance type Covered libertarian ID Authorization(s) Workers Compensation [id number] Social History Type Description Quantity Date Captured Comments Alcohol Use Details Caffeine Use Details coffee Tobacco Use Status Current non-smoker Smoking Status Never smoker Non-Smoking Tobacco : No Details Available : No Details Available 2019 Use Details Vital Signs Date / Height Weight BMI Pulse Blood Temperature Respiratory Body Head BMI Time: Rate Pressure Rate Surface Circumference percentile Area 64.00 87 108/75 14 /min -2019 in /min mm[Hg] 2:24 PM Chief Complaint And Reason For Visit Most recent encounter only, dated '10/28/2019 14:19'. low back pain ( chief complaint). Description: It occurs persistently. Location of pain is lower back. Pain is radiated to the left calf, right calf, left foot, right foot , left thigh and right thigh.The patient describes the pain as an ache, numbness and sharp. Symptoms are aggravated by daily activities, standing and walking. Symptoms are relieved by rest. Reason For Referral Reason For Referral Unknown Plan Of Care Date Type Action Status Referral Ordered: ordered CLARIBEL MAGAÑA MD -Neurology (related to Paresthesias/numbness) Referral Referred To: ordered abdominal binder Ordered: Referrals: abdominal binder. Consult Referral Referred To: ordered CLARIBEL MAGAÑA MD [address] [place] [address], [address] [phone] Ordered: Referrals: Neurology. CLARIBEL MAGAÑA MD. Evaluate and treat Referral Ordered: ordered MRI of lumbar spine W/o Contrast Then W/ Contrast Referral Ordered: ordered Pain Management (related to Low back pain) Referral Ordered: ordered Referrals: Pain Management Referral Ordered: ordered Neurology (related to Other intervertebral disc degeneration, lumbar region ) Referral Ordered: ordered Referrals: Neurology Referral Ordered: ordered Home Care (related to Low back pain) Referral Referred To: ordered WALKER FOLDING WHEELED W/O S Ordered: Referrals: WALKER FOLDING WHEELED W/O S Referral Ordered: ordered Referrals: Home Care. Evaluate and treat Referral Referred To: ordered CANE ADJUST/FIXED WITH TIP Ordered: Referrals: CANE ADJUST/FIXED WITH TIP Referral Referred To: ordered Compression Stocking Below Knee 18-30mm Hg Each Ordered: Referrals: Compression Stocking Below Knee 18-30mm Hg Each Referral Ordered: ordered Xray Spine Lumbar, 2 or 3 views Referral Referred To: ordered HOSP BED TOTAL ELECT W/ KADIE Ordered: Referrals: HOSP BED TOTAL ELECT W/ KADIE Referral Referred To: ordered compression stockings Ordered: Referrals: compression stockings Referral Ordered: ordered MRI of lumbar spine W/o Contrast Referral Ordered: ordered Physical Therapy (related to Low back pain) Referral Ordered: ordered Xray Spine Lumbar, min 4 views Referral Referred To: ordered Physical Therapy Ordered: Referrals: Physical Therapy. Consult. Diagnostic testing Appointment ELIAN GEIGER Patient Education Back Pain: Care Instructions completed Patient Education Back Stretches: Exercises completed Patient Education Back Pain, Emergency or Urgent Sympto~ completed Patient Education Low Back Pain: Exercises completed Date Type Problem Goal Intervention Status Start Date Unknown History Of Present Illness Encounter Date Complaint History Of Present Illness low back pain It occurs persistently. Location of pain is lower back. Pain is radiated to the left calf, right calf, left foot, right foot, left thigh and right thigh.The patient describes the pain as an ache, numbness and sharp. Symptoms are aggravated by daily activities, standing and walking. Symptoms are relieved by rest. Functional Status Encounter Date Functional Assessment Cognitive Assessment N/A Orientation - Oriented to time, place, person, situation.Normal Orientation Medications Administered Medication Instructions Dosage Effective Dates (start - stop) Status Comments Drug Treatment Unknown Instructions Date Instruction Additional Information Have the EMG studies done by the Related to Low back pain Neurologist and have [facility] a [facility] LS spineGentle home exercises and stretchesFall and lifting precautions, use the assistive device as helpfulFollow up with your family doctor for the leg painPhysical therapy referralMay transition to cane as safe for youMay transition to abdominal binder and wean from the LSO braceReferral to [facility]rolog[facility] with the name of a [facility] in [place] and I will provide a referral for [...] UDS result and recommend further treatment options. Risks and benefits of new medication Related to Encounter for other discussed.Follow up with your attending specified surgical aftercare physician in as scheduled with an Xray 1 hour prior to the visit at [facility] schedule physical therapy when feeling [...] or tenderness in lower legs, severe headache. Nystatin RX provided Related to Thrush, oral Discussed wound care Discussed post op care/precautions continue physical therapy Advance activity as tolerated Follow up with your attending physician Related to Encounter for other in 4 weeks with an Xray 1 hour prior to specified surgical aftercare the visit at [facility] schedule physical therapy when feeling [...]
[2020-01-29 18:54] VITALS: BP 117/73
[2020-01-29] MEDS ORDERED: Amoxicillin/Clavulanate TAB* 875 MG PO ONE (19:02)
== END 2020-01-29 19:08 | disposition home or self-care (01) ==
LOC: UCCORT 17:57
DX: H66.91 Otitis media, unspecified, right ear (principal); K21.9 Gastro-esophageal reflux disease without esophagitis; F41.9 Anxiety disorder, unspecified; Z79.899 Other long term (current) drug therapy
CPT/HCPCS: 99212; A9270-GY; G0463